=== PATIENT | male | born 1950 | race Caucasian/White ===

== ENCOUNTER 2019-03-24 11:29 | Inpatient (IN) | payer OTHER, MEDICARE ==
[2019-03-24 11:42] VITALS: BMI 15.6
--- NOTE | 2019-03-24 12:27 | PDOC ---
History of Present Illness - General Chief Complaint: Syncope/Near Syncope Stated Complaint: Syncope/Near Syncope Time Seen by Provider: 03/24/19 12:27 tPA Exclusion checklist 3-4.5h - Time Elapsed Date last known well: 03/22/19 Time last known well: 10:00 Elaspsed time: 2 Day(s) and 13 Hour(s) and 41 Minutes - Thrombolytic Therapy Candidate Is patient eligible for thrombolytic therapy: No - Ineligibility reason(s) Reasons No tPA given: Outside of window - delayed arrival NIH Stroke Scale - Last Known Well Date/Time & Onset Date Last Known Well: 03/22/19 Time Last Known Well: 10:00 - Initial Evaluation Level of consciousness: Alert Ask patient the month and their age: Answers both correctly Ask patient to open & close eyes; make fist and let go: Obeys both correctly Best gaze (horizontal eye movement): Normal Visual field testing: No visual field loss Facial paresis (Show teeth/raise eyebrows/close eyes tight): Normal symmetrical movement Motor Function: Left Arm: Normal Motor Function: Right Arm: Normal (extends arm 90 (or 45) degrees for 10 seconds without drift Motor Function: Left Leg: Normal (extends leg 30 degrees for 5 seconds without drift) Motor Function: Right Leg: Normal (extends leg 30 degrees for 5 seconds without drift) Limb Ataxia: Present in one limb Sensory(Use pinprick test arms,legs,trunk,face/side to side): Normal Best language (Describe picture, name items, read sentences): No Aphasia Dysarthria (read several words): Normal articulation Extinction and Inattention: No abnormality - Total Score NIH Stroke Scale Score: 1 Past History - Past Medical History Allergies/Adverse Reactions: Allergies Allergy/AdvReac Type Severity Reaction Status Date / Time No Known Allergies Allergy Verified 03/24/19 11:42 CVA: Yes (subarachnoid bleed on 2016, aphasia/apraxia) COPD: No Seizures: Yes - Psycho Social/Smoking Cessation Hx Smoking History: Current every day smoker Have you smoked in the past 12 months: No Number of Cigarettes Smoked Daily: 10 Information on smoking cessation initiated: No Hx Alcohol Use: No Drug/Substance Use Hx: No *Physical Exam - Vital Signs Last Vital Signs Temp Pulse Resp BP Pulse Ox 97 F L 80 16 166/53 L 96 03/24/19 11:35 03/24/19 11:35 03/24/19 11:35 03/24/19 11:35 03/24/19 11:35 ED Treatment Course - LABORATORY CBC & Chemistry Diagram: 03/24/19 13:15 03/24/19 13:15 Medical Decision Making - Medical Decision Making HPI: 68yo M with PMH of seizure disorder, 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 Patient is accompanied by his brother who is providing collateral history. Patient reports having a fall on Thursday after feeling dizzy and unstable. He fell on his left hip where he has had surgical hardware placed in 2014 and has mild pain there. Patient felt improvement in his dizziness but still felt unsteady yesterday. He felt acutely dizzy this morning around 10am and fell twice, hitting his head on the door and toilet. Denies loss of consciousness, nausea, or vomiting. No vision changes or focal weakness. Speech is at baseline per his brother, however, patient is unable to walk with his normal gait. Normally walks without a cane and walker. Last seizure was in July. Reports adherence with his seizure medications. No fevers, chills, chest pain, or shortness of breath. PCP: Dr. Garland, Neuro: Dr. Hernandez? ROS: Constitutional: no fever, no chills HEENT: no throat pain, no dysphagia Cardiovascular: no chest pain, no palpitations Respiratory: no cough, no shortness of breath Gastrointestinal: no abdominal pain, no nausea Genitourinary: no dysuria, no hematuria Musculoskeletal: no myalgia, no arthralgia Skin: no rash, no itching Neurologic: no headache, +dizziness PE: General: Awake, alert, and fully oriented, in no acute distress Head: No signs of trauma Eyes: EOMI, sclera anicteric ENT: Moist mucus membranes Neck: Normal ROM, supple Lungs: Lungs clear, Normal breath sounds Cardio: Regular rhythm, S1 and S2 present Abdomen: Soft, nontender. No guarding, no rebound, no masses Extremities: Normal range of motion, Distal pulses present SKIN: Warm, Dry, normal turgor Neurologic: Cranial nerves II through XII intact. Normal speech, sensation, strength, coordination. Unsteady gait ED Course/MDM: DDX including but not limited to CVA/TIA, infection, syncope/pre-syncope- cardiogenic, neurogenic, seizure, metabolic derangement Labs, EKG, CXR CT Head/Cpsine Hip/Pelvis Xray NIHSS is 1 for ataxia Outside tpa window as last known normal was Thursday Patient's brother, Joshua Ferris, can be reached at [phone] 03/24/19 12:27 EKG: rate 79, QTc 419, NSR (no prior EKGs in our EMR) 03/24/19 13:43 CBC WBC 8.2 K/mm3 (4.0-10.0) 03/24/19 13:15 RBC 3.72 M/mm3 (4.00-5.60) L 03/24/19 13:15 Hgb 13.1 GM/dL (11.7-16.9) 03/24/19 13:15 Hct 38.0 % (35.4-49) 03/24/19 13:15 MCV 102.0 fl (80-96) H 03/24/19 13:15 MCH 35.2 pg (25.7-33.7) H 03/24/19 13:15 MCHC 34.5 g/dl (32.0-35.9) 03/24/19 13:15 RDW 13.8 % (11.9-15.9) 03/24/19 13:15 Plt Count 151 K/MM3 (134-434) 03/24/19 13:15 MPV 8.0 fl (7.5-11.1) 03/24/19 13:15 Absolute Neuts (auto) 6.5 K/mm3 (1.5-8.0) 03/24/19 13:15 Neutrophils % 78.7 % (42.8-82.8) 03/24/19 13:15 Lymphocytes % 11.5 % (8-40) 03/24/19 13:15 Monocytes % 9.3 % (3.8-10.2) 03/24/19 13:15 Eosinophils % 0.2 % (0-4.5) 03/24/19 13:15 Basophils % 0.3 % (0-2.0) 03/24/19 13:15 Nucleated RBC % 0 % (0-0) 03/24/19 13:15 No leukocytosis CMP Sodium 134 mmol/L (136-145) L 03/24/19 13:15 Potassium 4.1 mmol/L (3.5-5.1) 03/24/19 13:15 Chloride 99 mmol/L (98-107) 03/24/19 13:15 Carbon Dioxide 31 mmol/L (21-32) 03/24/19 13:15 Anion Gap 5 MMOL/L (8-16) L 03/24/19 13:15 BUN 8.6 mg/dL (7-18) 03/24/19 13:15 Creatinine 0.7 mg/dL (0.55-1.3) 03/24/19 13:15 Est GFR (CKD-EPI)AfAm 112.38 03/24/19 13:15 Est GFR (CKD-EPI)NonAf 96.97 03/24/19 13:15 Random Glucose 84 mg/dL (74-106) 03/24/19 13:15 Calcium 8.6 mg/dL (8.5-10.1) 03/24/19 13:15 Total Bilirubin 0.4 mg/dL (0.2-1) 03/24/19 13:15 AST 26 U/L (15-37) 03/24/19 13:15 ALT 34 U/L (13-61) 03/24/19 13:15 Alkaline Phosphatase 99 U/L (45-117) 03/24/19 13:15 Creatine Kinase 384 U/L (26-308) H 03/24/19 13:15 Creatine Kinase Index 0.3 % (0.0-5.0) 03/24/19 13:15 CK-MB (CK-2) 1.5 ng/mL (0.5-3.6) 03/24/19 13:15 Troponin I < 0.02 ng/ml (0.00-0.05) 03/24/19 13:15 Total Protein 7.0 g/dl (6.4-8.2) 03/24/19 13:15 Albumin 4.0 g/dl (3.4-5.0) 03/24/19 13:15 Triglycerides 73 mg/dL (0-150) 03/24/19 13:15 Cholesterol 159 mg/dL (50-200) 03/24/19 13:15 Total LDL Cholesterol 56 mg/dL (5-100) 03/24/19 13:15 HDL Cholesterol 84 mg/dL (40-60) H 03/24/19 13:15 Electrolytes unremarkable No transaminitis Normal Cr Tpn undetectable CK mildly elevated Pending CT report 03/24/19 14:51 CT head: "No CT evidence of acute intracranial injury or calvarial fracture. Bilateral inferior frontal encephalomalacia, right more prominent than left, is seen along the orbital surfaces probably on a posttraumatic basis. There is no discrete infarct within the limitations of CT. No gross mass lesion is identified. No current intracranial hemorrhage is noted. There is no extra- axial fluid collection. There is no obstructive hydrocephalus. IMPRESSION: No CT evidence of acute intracranial pathology. Bilateral inferior frontal encephalomalacia. " CT Cspine: "Multiplanar imaging was performed. No prior imaging studies are available at this facility for direct comparison. No definite acute fracture is seen. There is no post traumatic malalignment. A moderate chronic C7 vertebral body compression fracture is seen without bony retropulsion. Within the visualized upper thoracic spine a mild to moderate T2 vertebral body compression fracture is seen which is probably chronic. MRI evaluation may be considered. The perivertebral soft tissues demonstrate no obvious abnormality. IMPRESSION: As noted above. " 03/24/19 16:12 Page to neurology, 03/24/19 16:[address] Rachel. Patient's dilantin level is supratherapeutic. To be held tonight. Consult placed. Plan for admission. 03/24/19 16:48 Dsicussed case with [facility] who accepted patient for admission under Dr. Chapa 03/24/19 17:46 Discharge - Discharge Information Problems reviewed: Yes Clinical Impression/Diagnosis: Dizziness, Unsteady gait Condition: Guarded - Admission Yes - Follow up/Referral - Patient Discharge Instructions - Post Discharge Activity
[2019-03-24] MEDS ORDERED: SODIUM CHLORIDE 1,000 ML IV SCH (13:00)
[2019-03-24 13:35] LABS: BASO % 0.3 % (0-2.0); EOS % 0.2 % (0-4.5); HEMOGLOBIN 13.1 GM/dL (11.7-16.9); LYMPH % 11.5 % (8-40); MCH 35.2 pg (25.7-33.7); MCHC 34.5 g/dl (32.0-35.9); MONO % 9.3 % (3.8-10.2); NEUT % 78.7 % (42.8-82.8); PLATELET COUNT 151 K/MM3 (134-434); RBC 3.72 M/mm3 (4.00-5.60); RDW 13.8 % (11.9-15.9); WHITE BLOOD COUNT 8.2 K/mm3 (4.0-10.0)
[2019-03-24 13:46] LABS: INR 1.08 (0.83-1.09); PROTHROMBIN TIME (PATIENT) 12.7 SEC (9.7-13.0)
[2019-03-24 13:48] LABS: ACTIVATED PTT 31.7 SECONDS (25.2-36.5)
[2019-03-24 13:54] LABS: BILIRUBIN,TOTAL 0.4 mg/dL (0.2-1); BLOOD UREA NITROGEN 8.6 mg/dL (7-18); CALCIUM 8.6 mg/dL (8.5-10.1); CREATININE 0.7 mg/dL (0.55-1.3); POTASSIUM 4.1 mmol/L (3.5-5.1)
--- NOTE | 2019-03-24 14:17 | PDOC ---
Documentation entered by Yoanna Mcdaniel SCRIBE, acting as scribe for Ramu Meadows MD. Ramu Meadows MD: This documentation has been prepared by the Jonas michaels Adrianna, SCRIBE, under my direction and personally reviewed by me in its entirety. I confirm that the documentation accurately reflects all work, treatment, procedures, and medical decision making performed by me. Attending Attestation - Resident Resident Name: Estefani Hernandez - ED Attending Attestation I have performed the following: I have examined & evaluated the patient, The case was reviewed & discussed with the resident, I agree w/resident's findings & plan, Exceptions are as noted - HPI HPI: The patient is a 68 year old male, with a significant PMH of seizure disorder ( compliant with medications) and traumatic subarachnoid hemorrhage (2014, with residual mild apraxia and aphasia), who presents to the ED for evaluation of dizziness and unsteady gait for 2 days. Patient reports falling onto his left hip 2 days ago secondary to dizziness and feeling unsteady, and endorses some residual pain. He admits to falling again this morning because of the continual room-spinning dizziness and unsteadiness, and reports hitting his head but denies LOC. Brother at bedside notes his speech is at baseline, but he cannot walk (ambulates without assistive devices at baseline). Last known seizure was 8 months ago. Allergies: NKA, NKDA Surgical HIstory: None reported Social History: Current everyday smoker PCP: Dr. Garland - Physicial Exam PE: Agree with resident exam - Medical Decision Making 03/24/19 14:13 68yo M hx seizure d/o on keppra and dilantin, traumatic SAH c/b residual apraxia , aphasia presents to the ED with gait unsteadiness for 2 days No headache Vitals with elevated BP Exam with ataxia Plan for stroke w/u. No seizure activity noted by brother Anticipate admission Case discussed with blas Amaral level elevated, may be contributing to ataxia Recommends overnight observation, will evaluate and to hold off on MRI for now Pt accepted for admission Case discussed in detail with admitting physician including history, physical exam and ancillary studies. Admitting physician has assumed care for the patient, will follow all pending diagnostics and will complete the evaluation and treatment.
[2019-03-24 17:06] LABS: EPI CELLS 0.1 /HPF (0-5/HPF); HYALINE CASTS 0 /lpf (0-8); URINE APPEARANCE CLEAR; URINE BACTERIA 0.8 /hpf (NEGATIVE); URINE BILIRUBIN NEGATIVE (NEGATIVE); URINE COLOR YELLOW; URINE GLUCOSE (UA) NEGATIVE (NEGATIVE); URINE KETONE NEGATIVE (NEGATIVE); URINE LEUK ESTERASE 1+ (NEGATIVE); URINE NITRITE NEGATIVE (NEGATIVE); URINE PROTEIN NEGATIVE (NEGATIVE); URINE RBC 4 /hpf (0-4); URINE UROBILINOGEN 0.2 mg/dL (0.2-1.0); URINE WBC 5 /hpf (0-5)
--- NOTE | 2019-03-24 17:42 | HP ---
CHIEF COMPLAINT: dizziness, falls, unstable gait PCP: Dr. 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 Patient reports that he fell on Thursday at home after feeling dizzy. He fell on his left hip were he had previously had hip surgery with surgical hardware in 2014. He again felt dizzy this morning while ambulting and fell twice, hitting his head on the door and toilet. He denies LOC, nausea or vomiting. He denies visual deficit or slurred speech. Patient is unable to ambulate at his normal gait which is usually without any assistive devices. He denies any recent seizure, last seizure was in July 2018. He reports adherence with the Keppra and Dilantin and reports alternating dilantin daily. ER course was notable for: (1) phentoin 36.9 (2) head ct negative (3) trop negative x 1 Imaging: Head CT: negative, no CT evidence of acute pathology. bilateral inf frontal encephalomlacia Left hip xray: no acute fracture EKG: nsr, possible left atrial enlargement, pulmonary disease likely Brain MRI: ordered and pending chest xray 03/24/19: emphysemtous changes in lungs. Recent Travel: denies PAST MEDICAL/SURGICAL HISTORY:seizure disorder, traumatic SAH in 2014 Social History: Smoking: denies Alcohol: denies Drugs: denies Allergies No Known Allergies Allergy (Verified 03/24/19 11:42) HOME MEDICATIONS: REVIEW OF SYSTEMS PHYSICAL EXAMINATION Vital Signs - 24 hr 03/24/19 03/24/19 11:35 17:17 Temperature 97 F L 98.2 F Pulse Rate 80 Pulse Rate [ 67 Right Apical] Respiratory 16 Rate Blood Pressure 166/53 L Blood Pressure 140/63 [Left Arm] O2 Sat by Pulse 96 96 Oximetry (%) GENERAL: Awake, alert, and fully oriented, in no acute distress, appears thin and frail. HEAD: Normal with no signs of trauma. EYES: Pupils equal, round and reactive to light, extraocular movements intact, sclera anicteric, conjunctiva clear. No lid lag. EARS, NOSE, THROAT: Ears normal, nares patent, oropharynx clear without exudates. Moist mucous membranes. NECK: Normal range of motion, supple without lymphadenopathy, JVD, or masses. LUNGS: Breath sounds equal, clear to auscultation bilaterally. No wheezes, and no crackles. No accessory muscle use. HEART: Regular rate and rhythm, ABDOMEN: Soft, nontender, not distended, normoactive bowel sounds, no guarding, no rebound, no masses. No hepatomegaly or splenomegaly. MUSCULOSKELETAL: Normal range of motion at all joints. No bony deformities or tenderness. No CVA tenderness. UPPER EXTREMITIES: No peripheral edema. LOWER EXTREMITIES: No peripheral edema. NEUROLOGICAL: Normal speech. gait not observed. PSYCHIATRIC: Cooperative. Good eye contact. Appropriate mood and affect. SKIN: dry skin Laboratory Results - last 24 hr 03/24/19 03/24/19 03/24/19 13:15 13:15 13:15 WBC 8.2 RBC 3.72 L Hgb 13.1 Hct 38.0 MCV 102.0 H MCH 35.2 H MCHC 34.5 RDW 13.8 Plt Count 151 MPV 8.0 Absolute Neuts (auto) 6.5 Neutrophils % 78.7 Lymphocytes % 11.5 Monocytes % 9.3 Eosinophils % 0.2 Basophils % 0.3 Nucleated RBC % 0 PT with INR INR PTT (Actin FS) Sodium 134 L Potassium 4.1 Chloride 99 Carbon Dioxide 31 Anion Gap 5 L BUN 8.6 Creatinine 0.7 Est GFR (CKD-EPI)AfAm 112.38 Est GFR (CKD-EPI)NonAf 96.97 Random Glucose 84 Calcium 8.6 Total Bilirubin 0.4 AST 26 ALT 34 Alkaline Phosphatase 99 Creatine Kinase 384 H Creatine Kinase Index 0.3 CK-MB (CK-2) 1.5 Troponin I < 0.02 Total Protein 7.0 Albumin 4.0 Triglycerides 73 Cholesterol 159 Total LDL Cholesterol 56 HDL Cholesterol 84 H Urine Color Urine Appearance Urine pH Ur Specific [place] Urine Protein Urine Glucose (UA) Urine Ketones Urine Blood Urine Nitrite Urine Bilirubin Urine Urobilinogen Ur Leukocyte Esterase Urine WBC (Auto) Urine RBC (Auto) Urine Casts (Auto) U Epithel Cells (Auto) Urine Bacteria (Auto) Phenytoin Blood Type Antibody Screen 03/24/19 03/24/19 03/24/19 13:15 13:15 15:00 WBC RBC Hgb Hct MCV MCH MCHC RDW Plt Count MPV Absolute Neuts (auto) Neutrophils % Lymphocytes % Monocytes % Eosinophils % Basophils % Nucleated RBC % PT with INR 12.70 INR 1.08 PTT (Actin FS) 31.7 Sodium Potassium Chloride Carbon Dioxide Anion Gap BUN Creatinine Est GFR (CKD-EPI)AfAm Est GFR (CKD-EPI)NonAf Random Glucose Calcium Total Bilirubin AST ALT Alkaline Phosphatase Creatine Kinase Creatine Kinase Index CK-MB (CK-2) Troponin I Total Protein Albumin Triglycerides Cholesterol Total LDL Cholesterol HDL Cholesterol Urine Color Urine Appearance Urine pH Ur Specific [place] Urine Protein Urine Glucose (UA) Urine Ketones Urine Blood Urine Nitrite Urine Bilirubin Urine Urobilinogen Ur Leukocyte Esterase Urine WBC (Auto) Urine RBC (Auto) Urine Casts (Auto) U Epithel Cells (Auto) Urine Bacteria (Auto) Phenytoin 36.9 Blood Type B POSITIVE Antibody Screen Negative 03/24/19 16:24 WBC RBC Hgb Hct MCV MCH MCHC RDW Plt Count MPV Absolute Neuts (auto) Neutrophils % Lymphocytes % Monocytes % Eosinophils % Basophils % Nucleated RBC % PT with INR INR PTT (Actin FS) Sodium Potassium Chloride Carbon Dioxide Anion Gap BUN Creatinine Est GFR (CKD-EPI)AfAm Est GFR (CKD-EPI)NonAf Random Glucose Calcium Total Bilirubin AST ALT Alkaline Phosphatase Creatine Kinase Creatine Kinase Index CK-MB (CK-2) Troponin I Total Protein Albumin Triglycerides Cholesterol Total LDL Cholesterol HDL Cholesterol Urine Color Yellow Urine Appearance Clear Urine pH 8.0 Ur Specific [place] 1.007 L Urine Protein Negative Urine Glucose (UA) Negative Urine Ketones Negative Urine Blood Trace Urine Nitrite Negative Urine Bilirubin Negative Urine Urobilinogen 0.2 Ur Leukocyte Esterase 1+ H Urine WBC (Auto) 5 Urine RBC (Auto) 4 Urine Casts (Auto) 0 U Epithel Cells (Auto) 0.1 Urine Bacteria (Auto) 0.8 Phenytoin Blood Type Antibody Screen ASSESSMENT/PLAN: Problem List - Problem (1) Syncope and collapse Assessment/Plan: Patient with dizzines, syncope and falls monitor on tele head ct negative for acute process, therefore patient for brain mri which is pending. physical therapy for gait assessment draw lipid panel, a1c. fall precautions Code(s): R55 - SYNCOPE AND COLLAPSE (2) Seizure Assessment/Plan: on keppra 1000mg bid on dilantin and alternates doses every other day. dilantin being held for dilantin level of 39. monitor neuro status neurology following Code(s): R56.9 - UNSPECIFIED CONVULSIONS (3) Falls Assessment/Plan: for physical therapy evaluation. Code(s): W19.XXXA - UNSPECIFIED FALL, INITIAL ENCOUNTER (4) Dizziness Assessment/Plan: noted to have emphysema on chest xray. may be causing dizziness/falls at home. on no home inhalers no history of emphysema reported pulmonary consulted for further recommendations patient is tolerating room air also noted is elevated dilantin levels. currently holding dilantin per neuro. Code(s): R42 - DIZZINESS AND GIDDINESS (5) Unsteady gait Assessment/Plan: for PT evaluation Code(s): R26.81 - UNSTEADINESS ON FEET (6) Syncope Assessment/Plan: monitor on tele. for brain mri. head ct negative. Code(s): R55 - SYNCOPE AND COLLAPSE (7) Prophylactic measure Assessment/Plan: fen gently hydrate, appears clinically dry monitor electrolytes low salt diet full code Code(s): Z29.9 - ENCOUNTER FOR PROPHYLACTIC MEASURES, UNSPECIFIED Visit type - Emergency Visit Emergency Visit: Yes ED Registration Date: 03/24/19 Care time: The patient presented to the Emergency Department on the above date and was hospitalized for further evaluation of their emergent condition. - New Patient This patient is new to me today: Yes Date on this admission: 03/25/19 - Critical Care Critical Care patient: No
--- NOTE | 2019-03-24 18:09 | CON.NEURO ---
Consult - History of Present Illness History of Present Illness: 68 year old male, with a significant PMH of seizure disorder (compliant with medications) and traumatic subarachnoid hemorrhage (2014, with residual mild apraxia and aphasia), who presents to the ED for evaluation of dizziness and unsteady gait for 2 days. Patient reports falling onto his left hip 2 days ago secondary to dizziness and feeling unsteady, and endorses some residual pain. He admits to falling again this morning because of the continual room-spinning dizziness and unsteadiness, and reports hitting his head but denies LOC. Brother at bedside notes his speech is at baseline, but he cannot walk ( ambulates without assertive devices at baseline). receives his AED form his PMD , last SZ Jul 2018; dilantin > 36. - Alcohol/Substance Use Hx Alcohol Use: No - Smoking History Smoking history: Current every day smoker Have you smoked in the past 12 months: No Aproximately how many cigarettes per day: 10 Home Medications - Allergies Allergies/Adverse Reactions: Allergies Allergy/AdvReac Type Severity Reaction Status Date / Time No Known Allergies Allergy Verified 03/24/19 11:42 Physical Exam-Neuro Vital Signs: Vital Signs Temperature 98.2 F 03/24/19 17:17 Pulse Rate 67 03/24/19 17:17 Respiratory Rate 16 03/24/19 11:35 Blood Pressure 140/63 03/24/19 17:17 O2 Sat by Pulse Oximetry (%) 96 03/24/19 17:17 Labs: CBC, BMP 03/24/19 13:15 03/24/19 13:15 INR, PTT INR 1.08 (0.83-1.09) 03/24/19 13:15 - Neuro Exam Level Of Consciousness: Yes: Alert (awake, EOMI, no facial, no ataxia, very wide based gait, unsteady ) Imaging - Results Cat Scan: Report Reviewed, Image Reviewed Assessment/Plan 68 year old male, with a significant PMH of seizure disorder (compliant with medications) and traumatic subarachnoid hemorrhage (2014, with residual mild apraxia and aphasia), who presents to the ED for evaluation of dizziness and unsteady gait for 2 days. Patient reports falling onto his left hip 2 days ago secondary to dizziness and feeling unsteady, and endorses some residual pain. He admits to falling again this morning because of the continual room-spinning dizziness and unsteadiness, and reports hitting his head but denies LOC. Brother at bedside notes his speech is at baseline, but he cannot walk ( ambulates without assertive devices at baseline). receives his AED form his PMD , last SZ Jul 2018; dilantin > 36. + smoking, no ETOH. CT HD IMPRESSION: No CT evidence of acute intracranial pathology. 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 dilantin toxicity vs new ischemic event vs hydrocephalus hold dilantin dose cont KEppra 1000BID check MRI BRAIN in AM PT consult DR GRANADOS
[2019-03-24] MEDS ORDERED: ACETAMINOPHEN 325 MG TABLET (FP) PO PRN (19:04)
[2019-03-24] MEDS: SODIUM CHLORIDE 1,000 ML IV SCH (19:52)
[2019-03-24] MEDS ORDERED: levETIRAcetam 500 MG TABLET (FP) PO ONE (22:07)
[2019-03-24] MEDS: levETIRAcetam 500 MG TABLET (FP) PO SCH (22:16)
[2019-03-25] MEDS: levETIRAcetam 500 MG TABLET (FP) PO SCH ×2 (10:55→21:17)
[2019-03-25] MEDS: PANTOPRAZOLE 40 MG TABLET (FP) PO SCH (10:55)
[2019-03-25] MEDS: DOCUSATE SODIUM 100 MG CAPSULE (FP) PO SCH (10:55)
--- NOTE | 2019-03-25 11:00 | PN ---
Progress Note (short form) - Note Progress Note: 68 year old male, with a significant PMH of seizure disorder (compliant with medications) and traumatic subarachnoid hemorrhage (2014, with residual mild apraxia and aphasia), who presents to the ED for evaluation of dizziness and unsteady gait for 2 days. Patient reports falling onto his left hip 2 days ago secondary to dizziness and feeling unsteady, and endorses some residual pain. He admits to falling again this morning because of the continual room-spinning dizziness and unsteadiness, and reports hitting his head but denies LOC. Brother at bedside notes his speech is at baseline, but he cannot walk ( ambulates without assertive devices at baseline). receives his AED form his PMD , last SZ Jul 2018; dilantin > 36. FU : no new changes MRI BRAIN -P dilantin on hold - Alcohol/Substance Use Hx Alcohol Use: No - Smoking History Smoking history: Current every day smoker Have you smoked in the past 12 months: No Aproximately how many cigarettes per day: 10 Home Medications - Allergies Allergies/Adverse Reactions: Allergies Allergy/AdvReac Type Severity Reaction Status Date / Time No Known Allergies Allergy Verified 03/24/19 11:42 Physical Exam-Neuro Vital Signs: Vital Signs Temperature 99.0 F 03/25/19 08:20 Pulse Rate 75 03/25/19 08:20 Respiratory Rate 20 03/25/19 08:20 Blood Pressure 138/64 03/25/19 08:20 O2 Sat by Pulse Oximetry (%) 99 03/25/19 08:20 Labs: CBCD WBC 8.2 K/mm3 (4.0-10.0) 03/24/19 13:15 RBC 3.72 M/mm3 (4.00-5.60) L 03/24/19 13:15 Hgb 13.1 GM/dL (11.7-16.9) 03/24/19 13:15 Hct 38.0 % (35.4-49) 03/24/19 13:15 MCV 102.0 fl (80-96) H 03/24/19 13:15 MCHC 34.5 g/dl (32.0-35.9) 03/24/19 13:15 RDW 13.8 % (11.9-15.9) 03/24/19 13:15 Plt Count 151 K/MM3 (134-434) 03/24/19 13:15 MPV 8.0 fl (7.5-11.1) 03/24/19 13:15 CMP Sodium 134 mmol/L (136-145) L 03/24/19 13:15 Potassium 4.1 mmol/L (3.5-5.1) 03/24/19 13:15 Chloride 99 mmol/L (98-107) 03/24/19 13:15 Carbon Dioxide 31 mmol/L (21-32) 03/24/19 13:15 Anion Gap 5 MMOL/L (8-16) L 03/24/19 13:15 BUN 8.6 mg/dL (7-18) 03/24/19 13:15 Creatinine 0.7 mg/dL (0.55-1.3) 03/24/19 13:15 Calcium 8.6 mg/dL (8.5-10.1) 03/24/19 13:15 Total Bilirubin 0.4 mg/dL (0.2-1) 03/24/19 13:15 AST 26 U/L (15-37) 03/24/19 13:15 ALT 34 U/L (13-61) 03/24/19 13:15 Alkaline Phosphatase 99 U/L (45-117) 03/24/19 13:15 Total Protein 7.0 g/dl (6.4-8.2) 03/24/19 13:15 Albumin 4.0 g/dl (3.4-5.0) 03/24/19 13:15 - Neuro Exam Level Of Consciousness: Yes: Alert (awake, EOMI, no facial, no ataxia, very wide based gait, unsteady ) Imaging - Results Cat Scan: Report Reviewed, Image Reviewed Assessment/Plan 68 year old male, with a significant PMH of seizure disorder (compliant with medications) and traumatic subarachnoid hemorrhage (2014, with residual mild apraxia and aphasia), who presents to the ED for evaluation of dizziness and unsteady gait for 2 days. Patient reports falling onto his left hip 2 days ago secondary to dizziness and feeling unsteady, and endorses some residual pain. He admits to falling again this morning because of the continual room-spinning dizziness and unsteadiness, and reports hitting his head but denies LOC. Brother at bedside notes his speech is at baseline, but he cannot walk ( ambulates without assertive devices at baseline). receives his AED form his PMD , last SZ Jul 2018; dilantin > 36. + smoking, no ETOH. CT HD IMPRESSION: No CT evidence of acute intracranial pathology. 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 dilantin toxicity vs new ischemic event vs hydrocephalus hold dilantin dose ( will likely redose 100TID when level normalizes) cont KEppra 1000BID MRI BRAIN-P PT consult DR GRANADOS
[2019-03-25 12:07] LABS: BASO % 0.7 % (0-2.0); EOS % 0.8 % (0-4.5); HEMATOCRIT 36.1 % (35.4-49); HEMOGLOBIN 12.6 GM/dL (11.7-16.9); LYMPH % 20.1 % (8-40); MCH 36.1 pg (25.7-33.7); MCHC 34.8 g/dl (32.0-35.9); MEAN CELL VOLUME 103.8 fl (80-96); MEAN PLT VOLUME 7.9 fl (7.5-11.1); MONO % 10.7 % (3.8-10.2); NEUT % 67.7 % (42.8-82.8); PLATELET COUNT 153 K/MM3 (134-434); RBC 3.48 M/mm3 (4.00-5.60); RDW 13.8 % (11.9-15.9); WHITE BLOOD COUNT 5.7 K/mm3 (4.0-10.0)
[2019-03-25 12:38] LABS: ALBUMIN 3.6 g/dl (3.4-5.0); BILIRUBIN,TOTAL 0.7 mg/dL (0.2-1); CALCIUM 8.3 mg/dL (8.5-10.1); CREATININE 0.5 mg/dL (0.55-1.3); MAGNESIUM 1.7 mg/dL (1.8-2.4); TOT PROT 6.5 g/dl (6.4-8.2)
--- NOTE | 2019-03-25 12:55 | EKG ---
Test Reason : Blood Pressure : / mmHG Vent. Rate : 079 BPM Atrial Rate : 079 BPM P-R Int : 152 ms QRS Dur : 084 ms QT Int : 366 ms P-R-T Axes : 085 107 085 degrees QTc Int : 419 ms POOR DATA QUALITY, INTERPRETATION MAY BE ADVERSELY AFFECTED NORMAL SINUS RHYTHM POSSIBLE LEFT ATRIAL ENLARGEMENT RIGHTWARD AXIS PULMONARY DISEASE PATTERN ABNORMAL ECG NO PREVIOUS ECGS AVAILABLE Confirmed by GILDA SEALS, SHY ([id number] on 03/25/2019 12:55:22 PM Referred By: Confirmed By:SHY VO MD
--- NOTE | 2019-03-25 14:09 | PN ---
Physical Exam: SUBJECTIVE: Patient seen and examined OBJECTIVE: Patient is a 68 year old male with a significant past medical history of seizure disorder, traumatic SAH in 2015 with mild residual apraxia and aphasia who presents to the ED with with dizziness, unstable gait, and fall. Vital Signs Period Temp Pulse Resp BP Sys/Allen Pulse Ox Last 24 Hr 98.0 F-99.0 F 67-75 16-20 132-152/56-77 95-99 GENERAL: Awake, alert, and fully oriented, in no acute distress, appears thin and frail. HEAD: Normal with no signs of trauma. EYES: Pupils equal, round and reactive to light, extraocular movements intact, sclera anicteric, conjunctiva clear. No lid lag. EARS, NOSE, THROAT: Ears normal, nares patent, oropharynx clear without exudates. Moist mucous membranes. NECK: Normal range of motion, supple without lymphadenopathy, JVD, or masses. LUNGS: Breath sounds equal, clear to auscultation bilaterally. No wheezes, and no crackles. No accessory muscle use. HEART: Regular rate and rhythm, ABDOMEN: Soft, nontender, not distended, normoactive bowel sounds, no guarding, no rebound, no masses. No hepatomegaly or splenomegaly. MUSCULOSKELETAL: Normal range of motion at all joints. No bony deformities or tenderness. No CVA tenderness. UPPER EXTREMITIES: No peripheral edema. LOWER EXTREMITIES: No peripheral edema. NEUROLOGICAL: Normal speech. gait not observed. PSYCHIATRIC: Cooperative. Good eye contact. Appropriate mood and affect. SKIN: dry skin Laboratory Results - last 24 hr 03/24/19 03/24/19 03/24/19 13:15 13:15 15:00 WBC RBC Hgb Hct MCV MCH MCHC RDW Plt Count MPV Absolute Neuts (auto) Neutrophils % Lymphocytes % Monocytes % Eosinophils % Basophils % Nucleated RBC % Sodium Potassium Chloride Carbon Dioxide Anion Gap BUN Creatinine Est GFR (CKD-EPI)AfAm Est GFR (CKD-EPI)NonAf Random Glucose Hemoglobin A1c % Calcium Magnesium Total Bilirubin AST ALT Alkaline Phosphatase Creatine Kinase Index 0.3 CK-MB (CK-2) 1.5 Troponin I Total Protein Albumin Triglycerides Cholesterol Total LDL Cholesterol HDL Cholesterol TSH Urine Color Urine Appearance Urine pH Ur Specific [place] Urine Protein Urine Glucose (UA) Urine Ketones Urine Blood Urine Nitrite Urine Bilirubin Urine Urobilinogen Ur Leukocyte Esterase Urine WBC (Auto) Urine RBC (Auto) Urine Casts (Auto) U Epithel Cells (Auto) Urine Bacteria (Auto) Phenytoin 36.9 Blood Type B POSITIVE Antibody Screen Negative 03/24/19 03/24/19 03/25/19 16:24 20:00 01:30 WBC RBC Hgb Hct MCV MCH MCHC RDW Plt Count MPV Absolute Neuts (auto) Neutrophils % Lymphocytes % Monocytes % Eosinophils % Basophils % Nucleated RBC % Sodium Potassium Chloride Carbon Dioxide Anion Gap BUN Creatinine Est GFR (CKD-EPI)AfAm Est GFR (CKD-EPI)NonAf Random Glucose Hemoglobin A1c % Calcium Magnesium Total Bilirubin AST ALT Alkaline Phosphatase Creatine Kinase Index CK-MB (CK-2) Troponin I < 0.02 Total Protein Albumin Triglycerides Cholesterol Total LDL Cholesterol HDL Cholesterol TSH Urine Color Yellow Urine Appearance Clear Urine pH 8.0 Ur Specific [place] 1.007 L Urine Protein Negative Urine Glucose (UA) Negative Urine Ketones Negative Urine Blood Trace Urine Nitrite Negative Urine Bilirubin Negative Urine Urobilinogen 0.2 Ur Leukocyte Esterase 1+ H Urine WBC (Auto) 5 Urine RBC (Auto) 4 Urine Casts (Auto) 0 U Epithel Cells (Auto) 0.1 Urine Bacteria (Auto) 0.8 Phenytoin Blood Type B POSITIVE Antibody Screen 03/25/19 03/25/19 03/25/19 11:42 11:42 11:42 WBC 5.7 RBC 3.48 L Hgb 12.6 Hct 36.1 MCV 103.8 H MCH 36.1 H MCHC 34.8 RDW 13.8 Plt Count 153 MPV 7.9 Absolute Neuts (auto) 3.8 Neutrophils % 67.7 Lymphocytes % 20.1 D Monocytes % 10.7 H Eosinophils % 0.8 D Basophils % 0.7 Nucleated RBC % 0 Sodium 133 L Potassium 4.0 Chloride 100 Carbon Dioxide 27 Anion Gap 6 L BUN 8.0 Creatinine 0.5 L Est GFR (CKD-EPI)AfAm 129.05 Est GFR (CKD-EPI)NonAf 111.35 Random Glucose 97 Hemoglobin A1c % 4.8 Calcium 8.3 L Magnesium 1.7 L Total Bilirubin 0.7 AST 25 ALT 31 Alkaline Phosphatase 97 Creatine Kinase Index CK-MB (CK-2) Troponin I Total Protein 6.5 Albumin 3.6 Triglycerides 62 Cholesterol 152 Total LDL Cholesterol 57 HDL Cholesterol 78 H TSH 1.68 Urine Color Urine Appearance Urine pH Ur Specific [place] Urine Protein Urine Glucose (UA) Urine Ketones Urine Blood Urine Nitrite Urine Bilirubin Urine Urobilinogen Ur Leukocyte Esterase Urine WBC (Auto) Urine RBC (Auto) Urine Casts (Auto) U Epithel Cells (Auto) Urine Bacteria (Auto) Phenytoin Blood Type Antibody Screen Active Medications Generic Name Dose Route Start Last Admin Trade Name Freq PRN Reason Stop Dose Admin Acetaminophen 650 mg 03/24/19 19:04 Tylenol - PO Q6H PRN PAIN LEVEL 6-10 Docusate Sodium 100 mg 03/25/19 10:00 03/25/19 10:55 Colace - PO 100 mg DAILY TREVOR Administration Sodium Chloride 1,000 mls @ 83 mls/hr 03/24/19 19:15 03/24/19 19:52 Normal Saline - IV 83 mls/hr ASDIR TREVOR Administration Levetiracetam 1,000 mg 03/24/19 22:00 03/25/19 10:55 Keppra - PO 1,000 mg BID TREVOR Administration Pantoprazole Sodium 40 mg 03/25/19 10:00 03/25/19 10:55 Protonix - PO 40 mg DAILY TREVOR Administration ASSESSMENT/PLAN: Problem List - Problems (1) Syncope and collapse Assessment/Plan: Patient with dizzines, syncope and falls on admission. monitor on tele head ct negative for acute process, therefore patient for brain mri which is pending. physical therapy for gait assessment fall precautions Code(s): R55 - SYNCOPE AND COLLAPSE (2) Syncope Assessment/Plan: dizziness with falls at home. physical therapy following. Code(s): R55 - SYNCOPE AND COLLAPSE (3) Seizure Assessment/Plan: on keppra 1000mg bid on dilantin and alternates doses every other day. dilantin being held for dilantin level of 39. monitor neuro status neurology following Code(s): R56.9 - UNSPECIFIED CONVULSIONS (4) Falls Assessment/Plan: for physical therapy evaluation. Code(s): W19.XXXA - UNSPECIFIED FALL, INITIAL ENCOUNTER (5) Dizziness Assessment/Plan: noted to have emphysema on chest xray. may be causing dizziness/falls at home. on no home inhalers no history of emphysema reported pulmonary consulted for further recommendations patient is tolerating room air also noted is elevated dilantin levels. currently holding dilantin per neuro. Code(s): R42 - DIZZINESS AND GIDDINESS (6) Unsteady gait Assessment/Plan: for PT evaluation Code(s): R26.81 - UNSTEADINESS ON FEET (7) Tobacco abuse Assessment/Plan: smokes 1/2 pack per day, cigarettes since age of 17. not willing quit. wants to cut back. will offer nicotine patch and continue counseling on cessation. emphysema seen on chest imaging. pulm consult. Code(s): Z72.0 - TOBACCO USE (8) Prophylactic measure Assessment/Plan: fen gently hydrate, appears clinically dry monitor electrolytes low salt diet full code Code(s): Z29.9 - ENCOUNTER FOR PROPHYLACTIC MEASURES, UNSPECIFIED Visit type - Emergency Visit Emergency Visit: Yes ED Registration Date: 03/24/19 Care time: The patient presented to the Emergency Department on the above date and was hospitalized for further evaluation of their emergent condition. - New Patient This patient is new to me today: No - Critical Care Critical Care patient: No - Discharge Referral Referred to [facility] No
[2019-03-25] MEDS: SODIUM CHLORIDE 1,000 ML IV SCH (21:33)
[2019-03-26] MEDS: DOCUSATE SODIUM 100 MG CAPSULE (FP) PO SCH (09:40)
[2019-03-26] MEDS: levETIRAcetam 500 MG TABLET (FP) PO SCH ×2 (09:40→21:17)
[2019-03-26] MEDS: PANTOPRAZOLE 40 MG TABLET (FP) PO SCH (09:41)
--- NOTE | 2019-03-26 10:48 | PN ---
Progress Note (short form) - Note Progress Note: PULMONARY CONSULTATION DICTATED 03/26/19 IMP COPD STABLE NOT IN ACUTE EXACERBATION S/P FALL UNSTEADY GAIT DILANTIN TOXICITY H/O TRAUMATIC SUBARACHNOID SEIZURE DISORDER SMOKER PLAN MONITOR DILATIN LEVEL KEPPRA INHALED BRONCHODILATORS NEEDED LOW DOSE CHEST CT FOR LUNG CANCER SCREENING SMOKING CESSATION COUNSELED OUTPATIENT PFTS DR QUINN Problem List - Problems (1) Dilantin toxicity Code(s): T42.0X1A - POISONING BY HYDANTOIN DERIVATIVES, ACCIDENTAL, INIT (2) Dizziness Code(s): R42 - DIZZINESS AND GIDDINESS (3) Seizure Code(s): R56.9 - UNSPECIFIED CONVULSIONS (4) Tobacco abuse Code(s): Z72.0 - TOBACCO USE (5) Unsteady gait Code(s): R26.81 - UNSTEADINESS ON FEET
[2019-03-26 11:10] LABS: BASO % 0.4 % (0-2.0); EOS % 0.7 % (0-4.5); HEMATOCRIT 38.1 % (35.4-49); HEMOGLOBIN 13.2 GM/dL (11.7-16.9); LYMPH % 15.9 % (8-40); MCH 34.6 pg (25.7-33.7); MCHC 34.5 g/dl (32.0-35.9); MEAN CELL VOLUME 100.4 fl (80-96); MEAN PLT VOLUME 7.8 fl (7.5-11.1); MONO % 10.6 % (3.8-10.2); NEUT % 72.4 % (42.8-82.8); PLATELET COUNT 175 K/MM3 (134-434); RDW 13.6 % (11.9-15.9); WHITE BLOOD COUNT 6.1 K/mm3 (4.0-10.0)
--- NOTE | 2019-03-26 11:35 | CONS ---
PULMONARY CONSULTATION DATE OF CONSULTATION: 03/26/2019 REFERRING PHYSICIAN: Oumou Billings NP HISTORY: Patient is a 68-year-old male with past medical history of seizure disorder compliant with medications, history of traumatic subarachnoid 2014 with apraxia and aphasia, history of tobacco use a ten cigarettes a day for many years. Admitted to [facility] on March 24 with complaint of dizziness and unsteady gait for 2-days' duration. Patient apparently fell on his left hip 2 days prior to admission secondary to feeling dizzy and unsteady. He denies any loss of consciousness. Denies any chest pains or palpitations. On admission, patient was evaluated by neurology and felt to have a possible Dilantin toxicity. Patient underwent an MRI of the brain, which revealed no acute pathology. Patient denies any shortness of breath, denies any PND or orthopnea, denies any chronic cough or hemoptysis. He denies any history of unexplained weight loss or night sweats. PAST MEDICAL HISTORY: Again, includes seizure disorder, history of traumatic subarachnoid 2014. SOCIAL HISTORY: Positive for tobacco approximately a pack a day for many years. No occupational exposures. REVIEW OF SYSTEMS: No orthopnea, no PND, no cough, no chest pain, no lightheadedness, no GI complaints. CURRENT MEDICATIONS: Include Tylenol, Keppra, Colace, normal saline, Protonix. PHYSICAL EXAMINATION: General: Patient is a cachectic male awake and alert in no acute distress. Vital Signs: He is afebrile. Blood pressure 142/53, respiratory rate is 20, O2 saturation is 100% on room air. HEENT: Normocephalic, atraumatic. Neck: Supple. Heart: Regular S1, S2. Chest: Clear. Abdomen: Soft. Bowel sounds are positive. Extremities: No cyanosis or edema. LABORATORIES: Sodium is 133, BUN 8, creatinine 0.5. Dilantin level is 36.9. WBC 5.7, hemoglobin 12.6, hematocrit 36.1. Chest x-ray: Hyperinflated lung stock. Emphysematous changes bilaterally. Brain MRI reveals focal encephalomalacia right frontal lobe anterior inferiorly. Moderate atrophy, ventricular dilatation, mild periventricular microvascular ischemic changes. No acute infarct is present. IMPRESSION: 1. Likely chronic obstructive pulmonary disease not in acute exacerbation. 2. Status post fall. 3. Unsteady gait. 4. Likely Dilantin toxicity. 5. History of traumatic subarachnoid. 6. Seizure disorder. 7. Smoker. PLAN: Monitor Dilantin level. Sarah. Inhaled bronchodilators as needed. Recommend low-dose chest CT as a lung cancer screening. Smoking cessation counseled. AMARJIT QUINN M.D. [facility]ART/[id number] MTDD
[2019-03-26 11:50] LABS: ALBUMIN 3.6 g/dl (3.4-5.0); BILIRUBIN,TOTAL 0.6 mg/dL (0.2-1); BLOOD UREA NITROGEN 9.2 mg/dL (7-18); CALCIUM 8.2 mg/dL (8.5-10.1); CREATININE 0.6 mg/dL (0.55-1.3); MAGNESIUM 1.7 mg/dL (1.8-2.4); POTASSIUM 3.9 mmol/L (3.5-5.1); TOT PROT 6.4 g/dl (6.4-8.2)
--- NOTE | 2019-03-26 12:13 | PN ---
Progress Note (short form) - Note Progress Note: 68 year old male, with a significant PMH of seizure disorder (compliant with medications) and traumatic subarachnoid hemorrhage (2014, with residual mild apraxia and aphasia), who presents to the ED for evaluation of dizziness and unsteady gait for 2 days. Patient reports falling onto his left hip 2 days ago secondary to dizziness and feeling unsteady, and endorses some residual pain. He admits to falling again this morning because of the continual room-spinning dizziness and unsteadiness, and reports hitting his head but denies LOC. Brother at bedside notes his speech is at baseline, but he cannot walk ( ambulates without assertive devices at baseline). receives his AED form his PMD , last SZ Jul 2018; dilantin > 36. FU : he states he is doing better, though continues to be imbalanced; at baselien he does he walks unassisted MRI BRAIN reviewed dilantin on hold RADIOLOGY : MRI BRAIN : IMPRESSION: No acute infarct is identified. Moderate atrophy, ventricular dilatation and mild periventricular chronic microvascular ischemic disease changes are present. Focal encephalomalacia in the right frontal lobe, anteriorly/inferiorly again seen. - Alcohol/Substance Use Hx Alcohol Use: No - Smoking History Smoking history: Current every day smoker Have you smoked in the past 12 months: No Aproximately how many cigarettes per day: 10 Home Medications - Allergies Allergies/Adverse Reactions: Allergies Allergy/AdvReac Type Severity Reaction Status Date / Time No Known Allergies Allergy Verified 03/24/19 11:42 Physical Exam-Neuro Vital Signs: Vital Signs Temperature 98.1 F 03/26/19 10:00 Pulse Rate 83 03/26/19 10:00 Respiratory Rate 20 03/26/19 10:00 Blood Pressure 142/53 L 03/26/19 10:00 O2 Sat by Pulse Oximetry (%) 100 03/26/19 09:00 Labs: CBCD CBCD WBC 6.1 K/mm3 (4.0-10.0) 03/26/19 10:43 RBC 3.80 M/mm3 (4.00-5.60) L 03/26/19 10:43 Hgb 13.2 GM/dL (11.7-16.9) 03/26/19 10:43 Hct 38.1 % (35.4-49) 03/26/19 10:43 MCV 100.4 fl (80-96) H 03/26/19 10:43 MCHC 34.5 g/dl (32.0-35.9) 03/26/19 10:43 RDW 13.6 % (11.9-15.9) 03/26/19 10:43 Plt Count 175 K/MM3 (134-434) 03/26/19 10:43 MPV 7.8 fl (7.5-11.1) 03/26/19 10:43 CMP Sodium 134 mmol/L (136-145) L 03/26/19 10:43 Potassium 3.9 mmol/L (3.5-5.1) 03/26/19 10:43 Chloride 100 mmol/L (98-107) 03/26/19 10:43 Carbon Dioxide 28 mmol/L (21-32) 03/26/19 10:43 Anion Gap 5 MMOL/L (8-16) L 03/26/19 10:43 BUN 9.2 mg/dL (7-18) 03/26/19 10:43 Creatinine 0.6 mg/dL (0.55-1.3) 03/26/19 10:43 Calcium 8.2 mg/dL (8.5-10.1) L 03/26/19 10:43 Total Bilirubin 0.6 mg/dL (0.2-1) 03/26/19 10:43 AST 34 U/L (15-37) 03/26/19 10:43 ALT 32 U/L (13-61) 03/26/19 10:43 Alkaline Phosphatase 103 U/L (45-117) 03/26/19 10:43 Total Protein 6.4 g/dl (6.4-8.2) 03/26/19 10:43 Albumin 3.6 g/dl (3.4-5.0) 03/26/19 10:43 - Neuro Exam Level Of Consciousness: Yes: Alert (awake, EOMI, no facial, no ataxia, very wide based gait, unsteady ) Imaging - Results Cat Scan: Report Reviewed, Image Reviewed Assessment/Plan 68 year old male, with a significant PMH of seizure disorder (compliant with medications) and traumatic subarachnoid hemorrhage (2014, with residual mild apraxia and aphasia), who presents to the ED for evaluation of dizziness and unsteady gait for 2 days. Patient reports falling onto his left hip 2 days ago secondary to dizziness and feeling unsteady, and endorses some residual pain. He admits to falling again this morning because of the continual room-spinning dizziness and unsteadiness, and reports hitting his head but denies LOC. Brother at bedside notes his speech is at baseline, but he cannot walk ( ambulates without assertive devices at baseline). receives his AED form his PMD , last SZ Jul 2018; dilantin > 36. + smoking, no ETOH. CT HD IMPRESSION: No CT evidence of acute intracranial pathology. 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 dilantin toxicity vs new ischemic event vs hydrocephalus , inc tone in legs may be from prior stroke vs cervical mediated , though he reports this is a new phenomena MRI BRAIN -no acute changes , R frontal encephalomalcia hold dilantin dose ( will likely redose 100TID when level normalizes) -- RECHECK LEVEL today cont Jeanniera 1000BID PT consult DR GRANADOS
--- NOTE | 2019-03-26 17:52 | PN ---
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 Vital Signs Period Temp Pulse Resp BP Sys/Allen Pulse Ox Last 24 Hr 98 F-98.8 F 71-90 18-20 139-155/49-74 99-100 GENERAL: Awake, alert, and fully oriented, in no acute distress, appears thin and frail. HEAD: Normal with no signs of trauma. EYES: Pupils equal, round and reactive to light, extraocular movements intact, sclera anicteric, conjunctiva clear. No lid lag. EARS, NOSE, THROAT: Ears normal, nares patent, oropharynx clear without exudates. Moist mucous membranes. NECK: Normal range of motion, supple without lymphadenopathy, JVD, or masses. LUNGS: Breath sounds equal, diminished auscultation bilaterally. HEART: Regular rate and rhythm, ABDOMEN: Soft, nontender, not distended, normoactive bowel sounds, no guarding, no rebound, no masses. No hepatomegaly or splenomegaly. MUSCULOSKELETAL: Normal range of motion at all joints. No bony deformities or tenderness. No CVA tenderness. UPPER EXTREMITIES: No peripheral edema. LOWER EXTREMITIES: No peripheral edema. NEUROLOGICAL: Normal speech. gait not observed. PSYCHIATRIC: Cooperative. Good eye contact. Appropriate mood and affect. SKIN: dry skin Laboratory Results - last 24 hr 03/26/19 03/26/19 03/26/19 10:43 10:43 13:38 WBC 6.1 RBC 3.80 L Hgb 13.2 Hct 38.1 MCV 100.4 H MCH 34.6 H MCHC 34.5 RDW 13.6 Plt Count 175 MPV 7.8 Absolute Neuts (auto) 4.4 Neutrophils % 72.4 Lymphocytes % 15.9 D Monocytes % 10.6 H Eosinophils % 0.7 Basophils % 0.4 Nucleated RBC % 0 Sodium 134 L Potassium 3.9 Chloride 100 Carbon Dioxide 28 Anion Gap 5 L BUN 9.2 Creatinine 0.6 Est GFR (CKD-EPI)AfAm 119.74 Est GFR (CKD-EPI)NonAf 103.31 Random Glucose 112 H Calcium 8.2 L Magnesium 1.7 L Total Bilirubin 0.6 AST 34 ALT 32 Alkaline Phosphatase 103 Total Protein 6.4 Albumin 3.6 Phenytoin 22.5 Active Medications Generic Name Dose Route Start Last Admin Trade Name Freq PRN Reason Stop Dose Admin Acetaminophen 650 mg 03/24/19 19:04 Tylenol - PO Q6H PRN PAIN LEVEL 6-10 Docusate Sodium 100 mg 03/25/19 10:00 03/26/19 09:40 Colace - PO 100 mg DAILY [facility] Administration Sodium Chloride 1,000 mls @ 83 mls/hr 03/24/19 19:15 03/25/19 21:33 Normal Saline - IV 83 mls/hr ASDIR [facility] Administration Levetiracetam 1,000 mg 03/24/19 22:00 03/26/19 09:40 Keppra - PO 1,000 mg BID [facility] Administration Pantoprazole Sodium 40 mg 03/25/19 10:00 03/26/19 09:41 Protonix - PO 40 mg DAILY [facility] Administration ASSESSMENT/PLAN: Problem List - Problems (1) Syncope and collapse Assessment/Plan: Patient with dizzines, syncope and falls on admission. nsr on tele head ct negative for acute process, mri brain with no acute infarction, moderate atrophy, ventricular dilatation and mild periventricular chronic microvascular ischemic dx changes. focal encephalomalacia in the the frontal lobe. physical therapy for gait assessment fall precautions Code(s): R55 - SYNCOPE AND COLLAPSE (2) Syncope Assessment/Plan: dizziness with falls at home. physical therapy following, home PT recommended. Code(s): R55 - SYNCOPE AND COLLAPSE (3) Seizure Assessment/Plan: on keppra 1000mg bid on dilantin and alternates doses every other day. dilantin being held for dilantin level of 39. levels repeated today monitor neuro status neurology following Code(s): R56.9 - UNSPECIFIED CONVULSIONS (4) Falls Assessment/Plan: for physical therapy evaluation. Code(s): W19.XXXA - UNSPECIFIED FALL, INITIAL ENCOUNTER (5) Dizziness Assessment/Plan: noted to have emphysema on chest xray. may be causing dizziness/falls at home. on no home inhalers no history of emphysema or copd reported but smoking since age of 17 pulmonary consulted for further recommendations, ct scan ordered patient is tolerating room air Code(s): R42 - DIZZINESS AND GIDDINESS (6) Unsteady gait Assessment/Plan: for PT evaluation Code(s): R26.81 - UNSTEADINESS ON FEET (7) Tobacco abuse Assessment/Plan: smokes 1/2 pack per day, cigarettes since age of 17. not willing quit. wants to cut back. will offer nicotine patch and continue counseling on cessation. emphysema seen on chest imaging. pulm consult. Code(s): Z72.0 - TOBACCO USE (8) Prophylactic measure Assessment/Plan: fen gently hydrate, appears clinically dry monitor electrolytes low salt diet full code Code(s): Z29.9 - ENCOUNTER FOR PROPHYLACTIC MEASURES, UNSPECIFIED Visit type - Emergency Visit Emergency Visit: Yes ED Registration Date: 03/24/19 Care time: The patient presented to the Emergency Department on the above date and was hospitalized for further evaluation of their emergent condition. - New Patient This patient is new to me today: No - Critical Care Critical Care patient: No - Discharge Referral Referred to [facility] No
[2019-03-26] MEDS: NICOTINE 21 MG/24 HOURS TOPICAL PATCH TD SCH ×2 (17:59→18:01)
[2019-03-27 09:06] LABS: BASO % 0.4 % (0-2.0); EOS % 0.8 % (0-4.5); HEMATOCRIT 36.4 % (35.4-49); HEMOGLOBIN 12.6 GM/dL (11.7-16.9); LYMPH % 14.1 % (8-40); MCH 35.3 pg (25.7-33.7); MCHC 34.7 g/dl (32.0-35.9); MEAN CELL VOLUME 101.6 fl (80-96); MEAN PLT VOLUME 7.7 fl (7.5-11.1); MONO % 8.2 % (3.8-10.2); NEUT % 76.5 % (42.8-82.8); PLATELET COUNT 187 K/MM3 (134-434); RBC 3.58 M/mm3 (4.00-5.60); RDW 13.9 % (11.9-15.9); WHITE BLOOD COUNT 6.6 K/mm3 (4.0-10.0)
[2019-03-27 09:20] LABS: ALBUMIN 3.5 g/dl (3.4-5.0); BILIRUBIN,TOTAL 0.7 mg/dL (0.2-1); CALCIUM 8.4 mg/dL (8.5-10.1); CREATININE 0.5 mg/dL (0.55-1.3); MAGNESIUM 1.7 mg/dL (1.8-2.4); POTASSIUM 3.9 mmol/L (3.5-5.1); TOT PROT 6.4 g/dl (6.4-8.2)
[2019-03-27] MEDS: levETIRAcetam 500 MG TABLET (FP) PO SCH ×2 (09:52→21:31)
[2019-03-27] MEDS: DOCUSATE SODIUM 100 MG CAPSULE (FP) PO SCH (09:52)
[2019-03-27] MEDS: PANTOPRAZOLE 40 MG TABLET (FP) PO SCH (09:52)
[2019-03-27] MEDS: NICOTINE 21 MG/24 HOURS TOPICAL PATCH TD SCH ×2 (09:52→09:54)
[2019-03-27] MEDS: SODIUM CHLORIDE 1,000 ML IV SCH ×2 (09:53→19:42)
--- NOTE | 2019-03-27 10:05 | PN ---
Progress Note, Physician History of Present Illness: pulmonary awake,no distress,-cp,-sob - Current Medication List Current Medications: Active Medications Acetaminophen (Tylenol -) 650 mg PO Q6H PRN PRN Reason: PAIN LEVEL 6-10 Docusate Sodium (Colace -) 100 mg PO DAILY [facility] Last Admin: 03/27/19 09:52 Dose: 100 mg Sodium Chloride (Normal Saline -) 1,000 mls @ 83 mls/hr IV ASDIR [facility] Last Admin: 03/27/19 09:53 Dose: 83 mls/hr Levetiracetam (Keppra -) 1,000 mg PO BID [facility] Last Admin: 03/27/19 09:52 Dose: 1,000 mg Nicotine (Nicoderm Patch -) 21 mg TD DAILY [facility] Last Admin: 03/27/19 09:54 Dose: Not Given Pantoprazole Sodium (Protonix -) 40 mg PO DAILY [facility] Last Admin: 03/27/19 09:52 Dose: 40 mg - Objective Vital Signs: Vital Signs Temperature 99.3 F 03/27/19 05:15 Pulse Rate 71 03/27/19 05:15 Respiratory Rate 20 03/27/19 05:15 Blood Pressure 141/54 L 03/27/19 05:15 O2 Sat by Pulse Oximetry (%) 98 03/26/19 20:23 Constitutional: Yes: Calm, Thin Eyes: Yes: WNL HENT: Yes: WNL Cardiovascular: Yes: Regular Rate and Rhythm, S1, S2 Respiratory: Yes: CTA Bilaterally Gastrointestinal: Yes: Normal Bowel Sounds, Soft Extremities: Yes: WNL Edema: No Labs: CBC, BMP 03/27/19 08:26 03/27/19 08:26 INR, PTT INR 1.08 (0.83-1.09) 03/24/19 13:15 Problem List - Problems (1) Dilantin toxicity Code(s): T42.0X1A - POISONING BY HYDANTOIN DERIVATIVES, ACCIDENTAL, INIT (2) Dizziness Code(s): R42 - DIZZINESS AND GIDDINESS (3) Seizure Code(s): R56.9 - UNSPECIFIED CONVULSIONS (4) Tobacco abuse Code(s): Z72.0 - TOBACCO USE (5) Unsteady gait Code(s): R26.81 - UNSTEADINESS ON FEET Assessment/Plan IMP COPD STABLE NOT IN ACUTE EXACERBATION S/P FALL UNSTEADY GAIT DILANTIN TOXICITY IMPROVING H/O TRAUMATIC SUBARACHNOID SEIZURE DISORDER SMOKER PLAN MONITOR DILATIN LEVEL KEPPRA INHALED BRONCHODILATORS NEEDED LOW DOSE CHEST CT FOR LUNG CANCER SCREENING SMOKING CESSATION COUNSELED OUTPATIENT PFTS DR QUINN Problem List - Problems (1) Dilantin toxicity Code(s): T42.0X1A - POISONING BY HYDANTOIN DERIVATIVES, ACCIDENTAL, INIT (2) Dizziness Code(s): R42 - DIZZINESS AND GIDDINESS (3) Seizure Code(s): R56.9 - UNSPECIFIED CONVULSIONS (4) Tobacco abuse Code(s): Z72.0 - TOBACCO USE (5) Unsteady gait Code(s): R26.81 - UNSTEADINESS ON FEET
[2019-03-27] MEDS ORDERED: MAGNESIUM OXIDE 400 MG TABLET (FP) PO ONE (14:33)
--- NOTE | 2019-03-27 16:18 | PN ---
Physical Exam: SUBJECTIVE: Patient seen and examined at the bedside. still having dizziness with ambulation, reports he does not get dizzy if uses the walker. 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 Imaging: Head CT: negative, no CT evidence of acute pathology. bilateral inf frontal encephalomlacia Left hip xray: no acute fracture EKG: nsr, possible left atrial enlargement, pulmonary disease likely Brain MRI: mod atrophy, vent. dilatation and mild periventricular ischemic changes, focal encephalomalcia in the right frontal lobe/ant/inf. chest xray 03/24/19: emphysemtous changes in lungs. Vital Signs Period Temp Pulse Resp BP Sys/Allen Pulse Ox Last 24 Hr 98 F-99.3 F 71-91 18-20 125-159/54-70 96-98 GENERAL: Awake, alert, and fully oriented, in no acute distress, appears thin and frail. HEAD: Normal with no signs of trauma. EYES: Pupils equal, round and reactive to light, extraocular movements intact, sclera anicteric, conjunctiva clear. No lid lag. EARS, NOSE, THROAT: Ears normal, nares patent, oropharynx clear without exudates. Moist mucous membranes. NECK: Normal range of motion, supple without lymphadenopathy, JVD, or masses. LUNGS: Breath sounds equal, diminished auscultation bilaterally. HEART: Regular rate and rhythm, ABDOMEN: Soft, nontender, not distended, normoactive bowel sounds, no guarding, no rebound, no masses. No hepatomegaly or splenomegaly. MUSCULOSKELETAL: Normal range of motion at all joints. No bony deformities or tenderness. No CVA tenderness. UPPER EXTREMITIES: No peripheral edema. LOWER EXTREMITIES: No peripheral edema. NEUROLOGICAL: Normal speech. gait not observed. PSYCHIATRIC: Cooperative. Good eye contact. Appropriate mood and affect. SKIN: dry skin Laboratory Results - last 24 hr 03/24/19 03/27/19 03/27/19 15:00 08:26 08:26 WBC 6.6 RBC 3.58 L Hgb 12.6 Hct 36.4 MCV 101.6 H MCH 35.3 H MCHC 34.7 RDW 13.9 Plt Count 187 MPV 7.7 Absolute Neuts (auto) 5.0 Neutrophils % 76.5 Lymphocytes % 14.1 Monocytes % 8.2 Eosinophils % 0.8 Basophils % 0.4 Nucleated RBC % 0 Sodium 135 L Potassium 3.9 Chloride 102 Carbon Dioxide 26 Anion Gap 7 L BUN 10.0 Creatinine 0.5 L Est GFR (CKD-EPI)AfAm 129.05 Est GFR (CKD-EPI)NonAf 111.35 Random Glucose 91 Calcium 8.4 L Magnesium 1.7 L Total Bilirubin 0.7 AST 37 ALT 35 Alkaline Phosphatase 96 Total Protein 6.4 Albumin 3.5 Levetiracetam 16.9 Active Medications Generic Name Dose Route Start Last Admin Trade Name Freq PRN Reason Stop Dose Admin Acetaminophen 650 mg 03/24/19 19:04 Tylenol - PO Q6H PRN PAIN LEVEL 6-10 Docusate Sodium 100 mg 03/25/19 10:00 03/27/19 09:52 Colace - PO 100 mg DAILY T[facility] Administration Sodium Chloride 1,000 mls @ 83 mls/hr 03/24/19 19:15 03/27/19 09:53 Normal Saline - IV 83 mls/hr ASDIR [facility] Administration Levetiracetam 1,000 mg 03/24/19 22:00 03/27/19 09:52 Keppra - PO 1,000 mg BID T[facility] Administration Nicotine 21 mg 03/26/19 18:00 03/27/19 09:54 Nicoderm Patch - TD Not Given DAILY [facility] Pantoprazole Sodium 40 mg 03/25/19 10:00 03/27/19 09:52 Protonix - PO 40 mg DAILY TRE[facility] Administration ASSESSMENT/PLAN: Problem List - Problems (1) Syncope and collapse Assessment/Plan: Patient with dizziness, syncope and falls on admission. nsr on tele, no acute events head ct negative for acute process, mri brain with no acute infarction, moderate atrophy, ventricular dilatation and mild periventricular chronic microvascular ischemic dx changes. focal encephalomalacia in the the frontal lobe. physical therapy for gait assessment fall precautions Code(s): R55 - SYNCOPE AND COLLAPSE (2) Syncope Assessment/Plan: dizziness with falls at home. physical therapy following, home PT recommended. Code(s): R55 - SYNCOPE AND COLLAPSE (3) Seizure Assessment/Plan: on keppra 1000mg bid on dilantin and alternates doses every other day. dilantin being held for dilantin level of 39. levels now 22. restart dilantin per neuro. monitor neuro status neurology following Code(s): R56.9 - UNSPECIFIED CONVULSIONS (4) Falls Assessment/Plan: for physical therapy evaluation. Code(s): W19.XXXA - UNSPECIFIED FALL, INITIAL ENCOUNTER (5) Dizziness Assessment/Plan: noted to have emphysema on chest xray. may be causing dizziness/falls at home. on no home inhalers no history of emphysema or copd reported but smoking since age of 17 pulmonary consulted for further recommendations, ct scan ordered and pending patient is tolerating room air Code(s): R42 - DIZZINESS AND GIDDINESS (6) Unsteady gait Assessment/Plan: for PT evaluation Code(s): R26.81 - UNSTEADINESS ON FEET (7) Tobacco abuse Assessment/Plan: smokes 1/2 pack per day, cigarettes since age of 17. not willing quit. wants to cut back. will offer nicotine patch and continue counseling on cessation. emphysema seen on chest imaging. pulm consult. Code(s): Z72.0 - TOBACCO USE (8) Prophylactic measure Assessment/Plan: fen gently hydrate, appears clinically dry monitor electrolytes low salt diet full code Code(s): Z29.9 - ENCOUNTER FOR PROPHYLACTIC MEASURES, UNSPECIFIED Visit type - Emergency Visit Emergency Visit: Yes ED Registration Date: 03/24/19 Care time: The patient presented to the Emergency Department on the above date and was hospitalized for further evaluation of their emergent condition. - New Patient This patient is new to me today: No - Critical Care Critical Care patient: No - Discharge Referral Referred to [facility] No
[2019-03-28 08:55] LABS: BASO % 0.5 % (0-2.0); EOS % 1.6 % (0-4.5); HEMATOCRIT 33.5 % (35.4-49); HEMOGLOBIN 12.1 GM/dL (11.7-16.9); LYMPH % 22.2 % (8-40); MCH 36.2 pg (25.7-33.7); MCHC 36.2 g/dl (32.0-35.9); MEAN CELL VOLUME 100.3 fl (80-96); MEAN PLT VOLUME 7.6 fl (7.5-11.1); MONO % 9.5 % (3.8-10.2); NEUT % 66.2 % (42.8-82.8); PLATELET COUNT 206 K/MM3 (134-434); RBC 3.34 M/mm3 (4.00-5.60); RDW 13.7 % (11.9-15.9); WHITE BLOOD COUNT 4.8 K/mm3 (4.0-10.0)
[2019-03-28 09:38] LABS: ALBUMIN 3.4 g/dl (3.4-5.0); BILIRUBIN,TOTAL 0.5 mg/dL (0.2-1); BLOOD UREA NITROGEN 8.6 mg/dL (7-18); CALCIUM 8.4 mg/dL (8.5-10.1); CREATININE 0.4 mg/dL (0.55-1.3); MAGNESIUM 1.7 mg/dL (1.8-2.4); POTASSIUM 4.2 mmol/L (3.5-5.1); TOT PROT 6.3 g/dl (6.4-8.2)
[2019-03-28] MEDS ORDERED: MAGNESIUM OXIDE 400 MG TABLET (FP) PO ONE (09:40)
[2019-03-28] MEDS: PANTOPRAZOLE 40 MG TABLET (FP) PO SCH (10:58)
[2019-03-28] MEDS: levETIRAcetam 500 MG TABLET (FP) PO SCH (10:58)
[2019-03-28] MEDS: DOCUSATE SODIUM 100 MG CAPSULE (FP) PO SCH (11:00)
[2019-03-28] MEDS: NICOTINE 21 MG/24 HOURS TOPICAL PATCH TD SCH (11:00)
[2019-03-28] MEDS ORDERED: FOLIC ACID 1 MG TABLET (FP) PO SCH (12:45)
--- NOTE | 2019-03-28 14:21 | PN ---
Progress Note (short form) - Note Progress Note: PULMONARY Denies shortness of breath, cough or wheezing. CT chest without acute findings. Vital Signs Period Temp Pulse Resp BP Sys/Allen Pulse Ox Last 24 Hr 98.0 F-99 F 70-82 20-20 125-142/54-63 96-96 Gen: NAD at rest Heart: RRR Lung: distant breath sounds Abd: soft, nontender Ext: no edema CBC, BMP 03/28/19 08:02 03/28/19 08:02 Active Medications Acetaminophen (Tylenol -) 650 mg PO Q6H PRN PRN Reason: PAIN LEVEL 6-10 Docusate Sodium (Colace -) 100 mg PO DAILY [facility] Last Admin: 03/28/19 11:00 Dose: Not Given Levetiracetam (Keppra -) 1,000 mg PO BID [facility] Last Admin: 03/28/19 10:58 Dose: 1,000 mg Nicotine (Nicoderm Patch -) 21 mg TD DAILY [facility] Last Admin: 03/28/19 11:00 Dose: Not Given A/P s/p Fall Dilantin Toxicity COPD Seizure Disorder Smoker - inhaled bronchodilators as needed - smoking cessation - DVT prophylaxis - PFTs outpt
[2019-03-28] MEDS ORDERED: LORazepam 2 MG/ML SDV VIAL ONE (17:03)
--- NOTE | 2019-03-28 17:05 | PN ---
Physical Exam: SUBJECTIVE: Patient seen and examined at the bedside. 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 rapid response today after having a seizure, given loading dose of keppra 1k, convert keppra 1000mg bid IV since will keep NPO until mental status back to baseline. per neuro, give fosphentoin 500mg x 1 loading dose, then fosphentoin 100mg iv TID. seen post seizure, awake, alert and following commands, slightly groggy. Imaging: Head CT: negative, no CT evidence of acute pathology. bilateral inf. frontal encephalomlacia Left hip xray: no acute fracture EKG: nsr, possible left atrial enlargement, pulmonary disease likely Brain MRI: mod atrophy, vent. dilatation and mild periventricular ischemic changes, focal encephalomalcia in the right frontal lobe/ant/inf. chest xray 03/24/19: emphysemtous changes in lungs. Vital Signs Period Temp Pulse Resp BP Sys/Allen Pulse Ox Last 24 Hr 98.0 F-99 F 65-82 20-20 125-142/46-63 96-96 GENERAL: Awake, alert, and fully oriented, in no acute distress, appears thin and frail. HEAD: Normal with no signs of trauma. small abrasion on lower lip s/p seizure. EYES: Pupils equal, round and reactive to light, extraocular movements intact, sclera anicteric, conjunctiva clear. No lid lag. EARS, NOSE, THROAT: Ears normal, nares patent, oropharynx clear without exudates. Moist mucous membranes. NECK: Normal range of motion, supple without lymphadenopathy, JVD, or masses. LUNGS: Breath sounds equal, diminished auscultation bilaterally. HEART: Regular rate and rhythm, ABDOMEN: Soft, nontender, not distended, normoactive bowel sounds, no guarding, no rebound, no masses. No hepatomegaly or splenomegaly. MUSCULOSKELETAL: Normal range of motion at all joints. No bony deformities or tenderness. No CVA tenderness. UPPER EXTREMITIES: No peripheral edema. LOWER EXTREMITIES: No peripheral edema. NEUROLOGICAL: Normal speech. gait not observed. PSYCHIATRIC: Cooperative. Good eye contact. Appropriate mood and affect. SKIN: dry skin Laboratory Results - last 24 hr 03/28/19 03/28/19 08:02 08:02 WBC 4.8 RBC 3.34 L Hgb 12.1 Hct 33.5 L MCV 100.3 H MCH 36.2 H MCHC 36.2 H RDW 13.7 Plt Count 206 MPV 7.6 Absolute Neuts (auto) 3.2 Neutrophils % 66.2 Lymphocytes % 22.2 D Monocytes % 9.5 Eosinophils % 1.6 D Basophils % 0.5 Nucleated RBC % 0 Sodium 135 L Potassium 4.2 Chloride 103 Carbon Dioxide 26 Anion Gap 6 L BUN 8.6 Creatinine 0.4 L Est GFR (CKD-EPI)AfAm 141.45 Est GFR (CKD-EPI)NonAf 122.04 Random Glucose 85 Calcium 8.4 L Magnesium 1.7 L Total Bilirubin 0.5 AST 41 H ALT 41 Alkaline Phosphatase 100 Total Protein 6.3 L Albumin 3.4 Serum Folate 18 H Active Medications Generic Name Dose Route Start Last Admin Trade Name Freq PRN Reason Stop Dose Admin Acetaminophen 650 mg 03/24/19 19:04 Tylenol - PO Q6H PRN PAIN LEVEL 6-10 Docusate Sodium 100 mg 03/25/19 10:00 03/28/19 11:00 Colace - PO Not Given DAILY [facility] Levetiracetam 1,000 mg 03/24/19 22:00 03/28/19 10:58 Keppra - PO 1,000 mg BID [facility] Administration Nicotine 21 mg 03/26/19 18:00 03/28/19 11:00 Nicoderm Patch - TD Not Given DAILY [facility] ASSESSMENT/PLAN: Problem List - Problems (1) Seizure Assessment/Plan: rapid response today after having a seizure, given loading dose of keppra 1k, convert keppra 1000mg bid IV since will keep NPO until mental status back to baseline. per neuro, give fosphentoin 500mg x 1 loading dose, then fosphentoin 100mg iv TID. seen post seizure, awake, alert and following commands, slightly groggy. family informed of seizure. Code(s): R56.9 - UNSPECIFIED CONVULSIONS (2) Syncope and collapse Assessment/Plan: Patient with dizziness, syncope and falls on admission. nsr on tele, no acute events head ct negative for acute process, mri brain with no acute infarction, moderate atrophy, ventricular dilatation and mild periventricular chronic microvascular ischemic dx changes. focal encephalomalacia in the the frontal lobe. physical therapy for gait assessment fall precautions/seizure precautions Code(s): R55 - SYNCOPE AND COLLAPSE (3) Syncope Assessment/Plan: dizziness with falls at home. physical therapy following, home PT recommended. Code(s): R55 - SYNCOPE AND COLLAPSE (4) Falls Assessment/Plan: for physical therapy evaluation. Code(s): W19.XXXA - UNSPECIFIED FALL, INITIAL ENCOUNTER (5) Dizziness Assessment/Plan: noted to have emphysema on chest xray. may be causing dizziness/falls at home. on no home inhalers no history of emphysema or copd reported but smoking since age of 17 pulmonary consulted for further recommendations, ct scan consistent with mild copd. patient is tolerating room air Code(s): R42 - DIZZINESS AND GIDDINESS (6) Unsteady gait Assessment/Plan: for PT evaluation Code(s): R26.81 - UNSTEADINESS ON FEET (7) Tobacco abuse Assessment/Plan: smokes 1/2 pack per day, cigarettes since age of 17. not willing quit. wants to cut back. will offer nicotine patch and continue counseling on cessation. emphysema seen on chest imaging. pulm consult. Code(s): Z72.0 - TOBACCO USE (8) Moderate protein-calorie malnutrition Assessment/Plan: bmi 15.7, mild depletion of subcutanous fat and muscle mass noted. dietary consult. monitor weights. patent on dilantin which is being held currently, will defer on appetite stimulants or other meds as it can interfere with dilantin and cause further toxicity. Code(s): E44.0 - MODERATE PROTEIN-CALORIE MALNUTRITION (9) COPD (chronic obstructive pulmonary disease) Assessment/Plan: mild copd on imaging. will need outpt follow up. Code(s): J44.9 - CHRONIC OBSTRUCTIVE PULMONARY DISEASE, UNSPECIFIED (10) Prophylactic measure Assessment/Plan: fen monitor electrolytes low salt diet full code Code(s): Z29.9 - ENCOUNTER FOR PROPHYLACTIC MEASURES, UNSPECIFIED Visit type - Emergency Visit Emergency Visit: Yes ED Registration Date: 03/24/19 Care time: The patient presented to the Emergency Department on the above date and was hospitalized for further evaluation of their emergent condition. - New Patient This patient is new to me today: No - Critical Care Critical Care patient: No - Discharge Referral Referred to [facility] No
[2019-03-28] MEDS ORDERED: levETIRAcetam 500 MG/5 ML INJECTION VIAL IVPB ONE (17:08)
--- NOTE | 2019-03-28 17:10 | RAPID ---
<Silvino Estevez - Last Filed: 03/28/19 18:29> Physical Examination Vital Signs: Vital Signs Temperature 98.2 F 03/28/19 15:05 Pulse Rate 65 03/28/19 15:05 Respiratory Rate 20 03/28/19 15:05 Blood Pressure 126/46 L 03/28/19 15:05 O2 Sat by Pulse Oximetry (%) 96 03/28/19 09:00 Findings/Remarks: Rapid response was called overhead. Rapid response team arrived and pt was found to have blood periorally and shaking his Left lower extremity likely 2/2 to a seizure. Pt was no responsive to verbal stimulation and command. Vitals BP 119/57 HR69 O2 Sat 99 RA PE General: moderate distress initially then returned to baseline. AOx3 , cooperative HEENT: Dried blood periorally, blood stained mucosa Neuro: strength 5/5 b/l UE and LE, Sensation intact 5/5 UE and LE, CN 2-12 intact Lungs: CTAB CV: RRR, No MGR GI: ND, NT, BS+ Plan Prolactin and Lactate ordered Neuro checks routine Seizure precaution Pt placed on NPO Aspiration precaution and Keppra IV administered Primary team notified Labs: CBC, BMP 03/28/19 08:02 03/28/19 08:02 <[place] - Last Filed: 04/02/19 11:15> Physical Examination Vital Signs: Vital Signs Temperature 97.8 F 03/30/19 06:00 Pulse Rate 61 03/30/19 09:00 Respiratory Rate 18 03/30/19 09:00 Blood Pressure 124/37 L 03/30/19 09:00 O2 Sat by Pulse Oximetry (%) 98 03/29/19 21:00 Findings/Remarks: Seen and examined; verified morley parts of history ad PE. Discussed with resident team. Agree with note as documented. Labs: CBC, BMP 03/30/19 06:10 03/30/19 06:10
[2019-03-28] MEDS ORDERED: LORazepam 2 MG/ML SDV VIAL IVPUSH PRN (17:20)
[2019-03-28] MEDS ORDERED: FOSPHENYTOIN SODIUM 500 MG in SODIUM CHLORIDE 100 ML IVPB ONE ×2 (17:50→17:52)
[2019-03-28] MEDS ORDERED: FOSPHENYTOIN SODIUM 500 MG/10 ML IVPB ONE (18:00)
[2019-03-28] MEDS ORDERED: SODIUM CHLORIDE 1,000 ML IV SCH (21:00)
[2019-03-28] MEDS: FOSPHENYTOIN SODIUM 100 MG/2 ML VIAL IVPB SCH (22:22)
[2019-03-28] MEDS: levETIRAcetam 500 MG/5 ML INJECTION VIAL IVPB SCH (23:42)
[2019-03-29] MEDS: FOSPHENYTOIN SODIUM 100 MG/2 ML VIAL IVPB SCH ×3 (05:35→22:16)
[2019-03-29 07:42] LABS: ALBUMIN 3.1 g/dl (3.4-5.0); BILIRUBIN,TOTAL 0.6 mg/dL (0.2-1); BLOOD UREA NITROGEN 8.8 mg/dL (7-18); CALCIUM 8.3 mg/dL (8.5-10.1); CREATININE 0.5 mg/dL (0.55-1.3); POTASSIUM 4.3 mmol/L (3.5-5.1); TOT PROT 5.6 g/dl (6.4-8.2)
--- NOTE | 2019-03-29 08:09 | PN ---
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 - Current Medication List Current Medications: Active Medications Fosphenytoin Sodium (Cerebyx -) 100 mg IVPB TID [facility] Last Admin: 03/29/19 05:35 Dose: 100 mg Sodium Chloride (Normal Saline -) 1,000 mls @ 50 mls/hr IV ASDIR TREVOR Stop: 03/29/19 20:59 Last Admin: 03/28/19 22:22 Dose: 50 mls/hr Levetiracetam (Keppra Injection -) 1,000 mg IVPB BID TREVOR Last Admin: 03/28/19 23:42 Dose: 1,000 mg Lorazepam (Ativan Injection -) 1 mg IVPUSH Q6H PRN PRN Reason: seizures Last Admin: 03/28/19 17:38 Dose: 1 mg - Objective Vital Signs: Vital Signs Temperature 98.0 F 03/29/19 05:00 Pulse Rate 70 03/29/19 05:00 Respiratory Rate 20 03/29/19 05:00 Blood Pressure 110/55 L 03/29/19 05:00 O2 Sat by Pulse Oximetry (%) 95 03/28/19 21:00 Constitutional: Yes: Well Nourished, No Distress, Calm Eyes: Yes: WNL HENT: Yes: WNL, Atraumatic, Normocephalic Neck: Yes: WNL, Supple, Trachea Midline Cardiovascular: Yes: WNL, Regular Rate and Rhythm Respiratory: Yes: Diminished (at bases) Gastrointestinal: Yes: WNL, Normal Bowel Sounds ...Rectal Exam: Yes: Deferred Genitourinary: Yes: WNL Breast(s): Yes: WNL Musculoskeletal: Yes: WNL Extremities: Yes: WNL Edema: No Peripheral Pulses WNL: Yes Peripheral Pulses: Left Radial: 2+, Right Radial: 2+, Left Doralis Pedis: 2+, Right Dorsalis Pedis: 2+, Left Femoral: 2+, Right Femoral: 2+ Integumentary: Yes: WNL Neurological: Yes: Alert, Oriented, Unsteady Gait ...Motor Strength: WNL Labs: CBC, BMP 03/29/19 06:15 INR, PTT INR 1.08 (0.83-1.09) 03/24/19 13:15 - ....Imaging Chest X-ray: Report Reviewed (CXR 03/24/19: emphysemtous changes in lungs.) Cat Scan: Report Reviewed (Head CT: negative, no CT evidence of acute pathology. bilateral inf. frontal encephalomlacia Left hip xray: no acute fracture EKG: nsr, possible left atrial enlargement, pulmonary disease likely) MRI: Report Reviewed (Brain MRI: mod atrophy, vent. dilatation and mild periventricular ischemic changes, focal encephalomalcia in the right frontal lobe/ant/inf.) Other: Report Reviewed ( c) Problem List - Problems (1) Apraxia Code(s): R48.2 - APRAXIA (2) Aphasia Assessment/Plan: seen by [facility] for dysphagia regular diet with thin liquids Code(s): R47.01 - APHASIA (3) Prophylactic measure Assessment/Plan: FEN regualr diet no additional fluids needed nutritional supplements DVT early ambulation] PT Dispo mainatin as inoatient full code discharge pklanning to possibe SNF Code(s): Z29.9 - ENCOUNTER FOR PROPHYLACTIC MEASURES, UNSPECIFIED (4) Seizure Assessment/Plan: appreciate neurology consultation Mri No acute infarct is identified keppr level pending phyotoin level 2.5 c/W keppra and fosphynetoin no sz activity noted fall precautions Code(s): R56.9 - UNSPECIFIED CONVULSIONS (5) Dizziness Assessment/Plan: start low dose meclizine for vertigo?-will reasses tomorrow effectiveness Code(s): R42 - DIZZINESS AND GIDDINESS (6) Tobacco abuse Assessment/Plan: smoking cessation counseling Code(s): Z72.0 - TOBACCO USE (7) Unsteady gait Assessment/Plan: dizziness with falls at home r/t high dilantin levels? c/w physical therapy home PT recommended vs SNF placement Code(s): R26.81 - UNSTEADINESS ON FEET (8) Moderate protein-calorie malnutrition Assessment/Plan: bmi 15.7, mild depletion of subcutaneous fat and muscle mass noted. dietary following daily weights. will defer on appetite stimulants or other meds as it can interfere with dilantin and cause further toxicity pt refusing ensure will re-offer, start prosource Code(s): E44.0 - MODERATE PROTEIN-CALORIE MALNUTRITION Visit type - Emergency Visit Emergency Visit: Yes ED Registration Date: 03/24/19 Care time: The patient presented to the Emergency Department on the above date and was hospitalized for further evaluation of their emergent condition. - New Patient This patient is new to me today: Yes Date on this admission: 03/29/19 - Critical Care Critical Care patient: No - Discharge Referral Referred to [facility] Med P.C.: No
[2019-03-29 09:00] LABS: BASO % 0.3 % (0-2.0); EOS % 2.4 % (0-4.5); HEMATOCRIT 32.3 % (35.4-49); HEMOGLOBIN 11.1 GM/dL (11.7-16.9); LYMPH % 19.5 % (8-40); MCH 34.6 pg (25.7-33.7); MCHC 34.3 g/dl (32.0-35.9); MEAN CELL VOLUME 100.7 fl (80-96); MEAN PLT VOLUME 7.9 fl (7.5-11.1); MONO % 10.4 % (3.8-10.2); NEUT % 67.4 % (42.8-82.8); PLATELET COUNT 207 K/MM3 (134-434); RBC 3.21 M/mm3 (4.00-5.60); RDW 13.6 % (11.9-15.9)
[2019-03-29 10:01] LABS: MAGNESIUM 1.8 mg/dL (1.8-2.4)
[2019-03-29] MEDS: levETIRAcetam 500 MG/5 ML INJECTION VIAL IVPB SCH ×2 (10:21→22:15)
--- NOTE | 2019-03-29 10:40 | CONSULT ---
Admitting History and Physical - Primary Care Physician PCP: Mars Weeks - Admission History of Present Illness: Patient is a 68 year old male with a significant past medical history of seizure disorder, traumatic SAH in 2014 with mild residual apraxia and aphasia who presents to the ED with with dizziness, unstable gait, and fall. 03/28-Rapid response team arrived and pt was found to have blood periorally and shaking his Left lower extremity likely 2/2 to a seizure. Pt was not responsive to verbal stimulation and command. Today, oob, verbal, appropriate, o x 3, good historian. History Source: Patient, Medical Record Limitations to Obtaining History: No Limitations (baseline mild aphasia/apraxia) - Smoking History Smoking history: Current every day smoker Have you smoked in the past 12 months: No Aproximately how many cigarettes per day: 10 - Alcohol/Substance Use Hx Alcohol Use: No History - Admission Reason For Visit: DIZZINESS INSTAEDY GAIT - Diagnostics X-ray: Report Reviewed CT Scan: Report Reviewed MRI: Report Reviewed - General Mental Status: Alert and Oriented, Awake and Alert, Able to Follow Commands Attention: Intact Ability to Follow Directions: Good Head/Neck Control: WFL - Hearing Hearing: Normal Hearing Aide: No With Patient: No Speech Evaluation - Communication Primary Language: MONGOLIAN Communication: Yes: Aphasia (mild, errors in multisyllabic words and function word omission.) Oral Expression Ability: Yes: Mild Impairment - Speech Production Apraxia: Yes Able to Make Needs Known: Yes: Mildly Impaired Intelligibility: Yes: WNL - Speech Characteristics Voice Loudness: Normal Voice Pitch: Yes: Normal Voice Phonatory-based Quality: Yes: Normal Speech Clarity: < 100% Nasal Resonance: Normal Articulation: Yes: Precise - Language/Auditory Comprehension Follows: Yes: 2 Stage Simple Commands Observation: Able to respond to yes/no queries: Yes, Yes/No Confusion: No, Comprehends Conversational Speech: Yes - Language/Verbal Expression Aphasia: Yes: Apraxia, Grammatic Errors Functional Communication Status: Yes: Mildly Impaired - Swallow Evaluation/Bedside Assessment Current Nutritional Intake: NPO Oral Secretions: Yes: WFL Dentition: Yes: Adequate Facial Symmetry at Rest: Symmetrical Facial Symmetry on Retraction: Symmetrical Facial Movement: Controlled Sensation: Normal Against Resistance Opening: Normal Against Resistance Closing: Normal Pucker Lips: Normal Smile: Normal Lingual Movement: Normal, Symmetric Lingual Speed of Movement: Normal Lingual Movement Strgth Against Opposition: Normal Lingual Movement Characteristics: Normal Velopharyngeal Movement: Normal Laryngeal Elevation: WFL Laryngeal Movement: Able to Palpate Rate of Intake: WFL Bolus Size: WFL Labial Seal: WFL Chewing: WFL Oral Prep Time: WFL A-P Transit: WFL Pocketing: None Timing of Swallow: WFL Coughing/Throat Clear: No ((-) 3 oz water test) Change in Voice: No Recommendations - Speech Evaluation, Impression/Plan Impression: Baseline mild Aphasia/Apraxia with function word ommision and multisyllabic word production. - Dysphagia Impressions/Plan Swallowing Skills: WFL Dysphagia Impressions: No Impairment *Silent aspiration: cannot be R/O at bedside - Recommendations Diet Consistency: Regular Medication Administration: Whole with water Liquids: Thin Liquids
--- NOTE | 2019-03-29 10:44 | PN ---
Progress Note, Physician History of Present Illness: pulmonary awake,alert,oob-chair,-sob,dizziness improving - Current Medication List Current Medications: Active Medications Fosphenytoin Sodium (Cerebyx -) 100 mg IVPB TID [facility] Last Admin: 03/29/19 05:35 Dose: 100 mg Sodium Chloride (Normal Saline -) 1,000 mls @ 50 mls/hr IV ASDIR TREVOR Stop: 03/29/19 20:59 Last Admin: 03/28/19 22:22 Dose: 50 mls/hr Levetiracetam (Keppra Injection -) 1,000 mg IVPB BID [facility] Last Admin: 03/29/19 10:21 Dose: 1,000 mg Lorazepam (Ativan Injection -) 1 mg IVPUSH Q6H PRN PRN Reason: seizures Last Admin: 03/28/19 17:38 Dose: 1 mg - Objective Vital Signs: Vital Signs Temperature 97.9 F 03/29/19 09:00 Pulse Rate 66 03/29/19 09:00 Respiratory Rate 20 03/29/19 09:00 Blood Pressure 110/51 L 03/29/19 09:00 O2 Sat by Pulse Oximetry (%) 98 03/29/19 09:00 Constitutional: Yes: Calm, Thin Eyes: Yes: WNL HENT: Yes: WNL Neck: Yes: WNL Cardiovascular: Yes: Regular Rate and Rhythm, S1, S2 Respiratory: Yes: Diminished Gastrointestinal: Yes: Normal Bowel Sounds, Soft Extremities: Yes: WNL Edema: No Labs: CBC, BMP 03/29/19 06:15 03/29/19 06:15 INR, PTT INR 1.08 (0.83-1.09) 03/24/19 13:15 - ....Imaging Cat Scan: Report Reviewed, Image Reviewed Problem List - Problems (1) Dilantin toxicity Code(s): T42.0X1A - POISONING BY HYDANTOIN DERIVATIVES, ACCIDENTAL, INIT (2) Dizziness Code(s): R42 - DIZZINESS AND GIDDINESS (3) Seizure Code(s): R56.9 - UNSPECIFIED CONVULSIONS (4) Tobacco abuse Code(s): Z72.0 - TOBACCO USE (5) Unsteady gait Code(s): R26.81 - UNSTEADINESS ON FEET Assessment/Plan IMP COPD STABLE NOT IN ACUTE EXACERBATION S/P FALL UNSTEADY GAIT DILANTIN TOXICITY IMPROVING H/O TRAUMATIC SUBARACHNOID SEIZURE DISORDER SMOKER PLAN KEPPRA INHALED BRONCHODILATORS NEEDED YEARLY LOW DOSE CHEST CT FOR LUNG CANCER SCREENING SMOKING CESSATION COUNSELED OUTPATIENT PFTS DR QUINN Problem List - Problems (1) Dilantin toxicity Code(s): T42.0X1A - POISONING BY HYDANTOIN DERIVATIVES, ACCIDENTAL, INIT (2) Dizziness Code(s): R42 - DIZZINESS AND GIDDINESS (3) Seizure Code(s): R56.9 - UNSPECIFIED CONVULSIONS (4) Tobacco abuse Code(s): Z72.0 - TOBACCO USE (5) Unsteady gait Code(s): R26.81 - UNSTEADINESS ON FEET
[2019-03-29] MEDS ORDERED: PT OWN MED DRAWER 7, Y5N ONE (14:34)
--- NOTE | 2019-03-29 16:34 | PN ---
Progress Note (short form) - Note Progress Note: 68 year old male, with a significant PMH of seizure disorder (compliant with medications) and traumatic subarachnoid hemorrhage (2014, with residual mild apraxia and aphasia), who presents to the ED for evaluation of dizziness and unsteady gait for 2 days. Patient reports falling onto his left hip 2 days ago secondary to dizziness and feeling unsteady, and endorses some residual pain. He admits to falling again this morning because of the continual room-spinning dizziness and unsteadiness, and reports hitting his head but denies LOC. Brother at bedside notes his speech is at baseline, but he cannot walk ( ambulates without assertive devices at baseline). receives his AED form his PMD , last SZ Jul 2018; dilantin > 36. FU : still unsteady does feel left hip unsteady, XRAy -no acute pathology seizure event noted, restarted dilantin MRI BRAIN reviewed RADIOLOGY : MRI BRAIN : IMPRESSION: No acute infarct is identified. Moderate atrophy, ventricular dilatation and mild periventricular chronic microvascular ischemic disease changes are present. Focal encephalomalacia in the right frontal lobe, anteriorly/inferiorly again seen. - Alcohol/Substance Use Hx Alcohol Use: No - Smoking History Smoking history: Current every day smoker Have you smoked in the past 12 months: No Aproximately how many cigarettes per day: 10 Home Medications - Allergies Allergies/Adverse Reactions: Allergies Allergy/AdvReac Type Severity Reaction Status Date / Time No Known Allergies Allergy Verified 03/24/19 11:42 Physical Exam-Neuro Vital Signs: Vital Signs Temperature 98.4 F 03/29/19 14:00 Pulse Rate 65 03/29/19 14:00 Respiratory Rate 20 03/29/19 14:00 Blood Pressure 119/44 L 03/29/19 14:00 O2 Sat by Pulse Oximetry (%) 98 03/29/19 09:00 Labs: CBCD CBCD WBC 6.1 K/mm3 (4.0-10.0) 03/26/19 10:43 RBC 3.80 M/mm3 (4.00-5.60) L 03/26/19 10:43 Hgb 13.2 GM/dL (11.7-16.9) 03/26/19 10:43 Hct 38.1 % (35.4-49) 03/26/19 10:43 MCV 100.4 fl (80-96) H 03/26/19 10:43 MCHC 34.5 g/dl (32.0-35.9) 03/26/19 10:43 RDW 13.6 % (11.9-15.9) 03/26/19 10:43 Plt Count 175 K/MM3 (134-434) 03/26/19 10:43 MPV 7.8 fl (7.5-11.1) 03/26/19 10:43 CMP Sodium 134 mmol/L (136-145) L 03/26/19 10:43 Potassium 3.9 mmol/L (3.5-5.1) 03/26/19 10:43 Chloride 100 mmol/L (98-107) 03/26/19 10:43 Carbon Dioxide 28 mmol/L (21-32) 03/26/19 10:43 Anion Gap 5 MMOL/L (8-16) L 03/26/19 10:43 BUN 9.2 mg/dL (7-18) 03/26/19 10:43 Creatinine 0.6 mg/dL (0.55-1.3) 03/26/19 10:43 Calcium 8.2 mg/dL (8.5-10.1) L 03/26/19 10:43 Total Bilirubin 0.6 mg/dL (0.2-1) 03/26/19 10:43 AST 34 U/L (15-37) 03/26/19 10:43 ALT 32 U/L (13-61) 03/26/19 10:43 Alkaline Phosphatase 103 U/L (45-117) 03/26/19 10:43 Total Protein 6.4 g/dl (6.4-8.2) 03/26/19 10:43 Albumin 3.6 g/dl (3.4-5.0) 03/26/19 10:43 - Neuro Exam Level Of Consciousness: Yes: Alert (awake, EOMI, no facial, no ataxia, very wide based gait, unsteady ) Imaging - Results Cat Scan: Report Reviewed, Image Reviewed Assessment/Plan 68 year old male, with a significant PMH of seizure disorder (compliant with medications) and traumatic subarachnoid hemorrhage (2014, with residual mild apraxia and aphasia), who presents to the ED for evaluation of dizziness and unsteady gait for 2 days. Patient reports falling onto his left hip 2 days ago secondary to dizziness and feeling unsteady, and endorses some residual pain. He admits to falling again this morning because of the continual room-spinning dizziness and unsteadiness, and reports hitting his head but denies LOC. Brother at bedside notes his speech is at baseline, but he cannot walk ( ambulates without assertive devices at baseline). receives his AED form his PMD , last SZ Jul 2018; dilantin > 36. + smoking, no ETOH. CT HD IMPRESSION: No CT evidence of acute intracranial pathology. 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 dilantin toxicity vs new ischemic event vs hydrocephalus , inc tone in legs may be from prior stroke vs cervical mediated , though he reports this is a new phenomena MRI BRAIN -no acute changes , R frontal encephalomalcia , no obstructive hydrocephalus dilantin restarted --100TID now , check LEVEL in one week cont KEppra 1000BID ? left hip pathology a factor -- ORTHO input, use waker for now rehab planning DR GRANADOS
[2019-03-29] MEDS: MECLIZINE HCL 12.5 MG TABLET PO SCH (18:15)
[2019-03-30] MEDS: MECLIZINE HCL 12.5 MG TABLET PO SCH ×3 (00:42→13:40)
[2019-03-30] MEDS: FOSPHENYTOIN SODIUM 100 MG/2 ML VIAL IVPB SCH (05:54)
[2019-03-30 06:33] VITALS: TEMP 97.8
[2019-03-30 07:07] LABS: BASO % 0.5 % (0-2.0); EOS % 2.8 % (0-4.5); HEMATOCRIT 31.7 % (35.4-49); LYMPH % 27.2 % (8-40); MCH 35.3 pg (25.7-33.7); MCHC 34.6 g/dl (32.0-35.9); MEAN CELL VOLUME 101.9 fl (80-96); MEAN PLT VOLUME 7.4 fl (7.5-11.1); MONO % 11.2 % (3.8-10.2); NEUT % 58.3 % (42.8-82.8); PLATELET COUNT 226 K/MM3 (134-434); RBC 3.12 M/mm3 (4.00-5.60); RDW 13.7 % (11.9-15.9); WHITE BLOOD COUNT 4.8 K/mm3 (4.0-10.0)
[2019-03-30 07:14] LABS: ALBUMIN 3.1 g/dl (3.4-5.0); BILIRUBIN,TOTAL 0.5 mg/dL (0.2-1); BLOOD UREA NITROGEN 10.4 mg/dL (7-18); CALCIUM 8.3 mg/dL (8.5-10.1); CREATININE 0.5 mg/dL (0.55-1.3); POTASSIUM 4.2 mmol/L (3.5-5.1); TOT PROT 5.8 g/dl (6.4-8.2)
--- NOTE | 2019-03-30 07:53 | PN ---
Progress Note, Physician - Current Medication List Current Medications: Active Medications Amino Acids (Prosource No Carb Liquid Pkt) 30 ml PO BID@0800,1730 [facility] Fosphenytoin Sodium (Cerebyx -) 100 mg IVPB TID [facility] Last Admin: 03/30/19 05:54 Dose: 100 mg Levetiracetam (Keppra Injection -) 1,000 mg IVPB BID [facility] Last Admin: 03/29/19 22:15 Dose: 1,000 mg Lorazepam (Ativan Injection -) 1 mg IVPUSH Q6H PRN PRN Reason: seizures Last Admin: 03/28/19 17:38 Dose: 1 mg Meclizine HCl (Antivert -) 12.5 mg PO Q6HPO [facility] Last Admin: 03/30/19 05:54 Dose: 12.5 mg - Objective Vital Signs: Vital Signs Temperature 97.8 F 03/30/19 06:00 Pulse Rate 58 L 03/30/19 06:00 Respiratory Rate 20 03/30/19 06:00 Blood Pressure 119/49 L 03/30/19 06:00 O2 Sat by Pulse Oximetry (%) 98 03/29/19 21:00 Labs: CBC, BMP 03/30/19 06:10 INR, PTT INR 1.08 (0.83-1.09) 03/24/19 13:15 Problem List - Problems (1) Apraxia Code(s): R48.2 - APRAXIA (2) Aphasia Code(s): R47.01 - APHASIA (3) Prophylactic measure Code(s): Z29.9 - ENCOUNTER FOR PROPHYLACTIC MEASURES, UNSPECIFIED (4) Seizure Code(s): R56.9 - UNSPECIFIED CONVULSIONS (5) Dizziness Code(s): R42 - DIZZINESS AND GIDDINESS (6) Tobacco abuse Code(s): Z72.0 - TOBACCO USE (7) Unsteady gait Code(s): R26.81 - UNSTEADINESS ON FEET (8) Moderate protein-calorie malnutrition Code(s): E44.0 - MODERATE PROTEIN-CALORIE MALNUTRITION
[2019-03-30] MEDS ORDERED: AMINO ACIDS/PROTEIN HYDROLYS 30 ML LIQUID.PKT PO SCH (08:00)
[2019-03-30 09:00] VITALS: BP 124/37; PULSE 61
[2019-03-30] MEDS ORDERED: levETIRAcetam 500 MG TABLET (FP) PO SCH (10:00)
[2019-03-30] MEDS ORDERED: PT OWN MED DRAWER 7, Y5N ONE (10:19)
[2019-03-30] MEDS: PHENYTOIN NA EXTENDED 100 MG CAPSULE (FP) PO SCH ×2 (10:46→13:39)
--- NOTE | 2019-03-30 11:15 | PN ---
Progress Note, FOOD SCIENTIST - Note Progress Note: Selected Entries 03/29/19 03/29/19 03/29/19 01:00 05:00 09:00 Supper Temperature 97.7 F 98.0 F 97.9 F 03/29/19 03/29/19 03/29/19 14:00 17:00 21:14 Supper 50% Temperature 98.4 F 98.0 F 03/29/19 03/30/19 03/30/19 22:00 01:41 06:00 Supper Temperature 98.3 F 98.2 F 97.8 F Laboratory Tests 03/30/19 06:10 WBC 4.8 On Reg diet/thin liquids.Tolerating diet well. He reports completing his meals without difficulty.
--- NOTE | 2019-03-30 11:35 | PN ---
Progress Note (short form) - Note Progress Note: 68 year old male, with a significant PMH of seizure disorder (compliant with medications) and traumatic subarachnoid hemorrhage (2014, with residual mild apraxia and aphasia), who presents to the ED for evaluation of dizziness and unsteady gait for 2 days. Patient reports falling onto his left hip 2 days ago secondary to dizziness and feeling unsteady, and endorses some residual pain. He admits to falling again this morning because of the continual room-spinning dizziness and unsteadiness, and reports hitting his head but denies LOC. Brother at bedside notes his speech is at baseline, but he cannot walk ( ambulates without assertive devices at baseline). receives his AED form his PMD , last SZ Jul 2018; dilantin > 36. FU : doing better seizure event noted, restarted dilantin MRI BRAIN reviewed RADIOLOGY : MRI BRAIN : IMPRESSION: No acute infarct is identified. Moderate atrophy, ventricular dilatation and mild periventricular chronic microvascular ischemic disease changes are present. Focal encephalomalacia in the right frontal lobe, anteriorly/inferiorly again seen. - Alcohol/Substance Use Hx Alcohol Use: No - Smoking History Smoking history: Current every day smoker Have you smoked in the past 12 months: No Aproximately how many cigarettes per day: 10 Home Medications - Allergies Allergies/Adverse Reactions: Allergies Allergy/AdvReac Type Severity Reaction Status Date / Time No Known Allergies Allergy Verified 03/24/19 11:42 Physical Exam-Neuro Vital Signs: Vital Signs Temperature 97.8 F 03/30/19 06:00 Pulse Rate 61 03/30/19 09:00 Respiratory Rate 18 03/30/19 09:00 Blood Pressure 124/37 L 03/30/19 09:00 O2 Sat by Pulse Oximetry (%) 98 03/29/19 21:00 Labs: CBCD CBCD WBC 6.1 K/mm3 (4.0-10.0) 03/26/19 10:43 RBC 3.80 M/mm3 (4.00-5.60) L 03/26/19 10:43 Hgb 13.2 GM/dL (11.7-16.9) 03/26/19 10:43 Hct 38.1 % (35.4-49) 03/26/19 10:43 MCV 100.4 fl (80-96) H 03/26/19 10:43 MCHC 34.5 g/dl (32.0-35.9) 03/26/19 10:43 RDW 13.6 % (11.9-15.9) 03/26/19 10:43 Plt Count 175 K/MM3 (134-434) 03/26/19 10:43 MPV 7.8 fl (7.5-11.1) 03/26/19 10:43 CMP Sodium 134 mmol/L (136-145) L 03/26/19 10:43 Potassium 3.9 mmol/L (3.5-5.1) 03/26/19 10:43 Chloride 100 mmol/L (98-107) 03/26/19 10:43 Carbon Dioxide 28 mmol/L (21-32) 03/26/19 10:43 Anion Gap 5 MMOL/L (8-16) L 03/26/19 10:43 BUN 9.2 mg/dL (7-18) 03/26/19 10:43 Creatinine 0.6 mg/dL (0.55-1.3) 03/26/19 10:43 Calcium 8.2 mg/dL (8.5-10.1) L 03/26/19 10:43 Total Bilirubin 0.6 mg/dL (0.2-1) 03/26/19 10:43 AST 34 U/L (15-37) 03/26/19 10:43 ALT 32 U/L (13-61) 03/26/19 10:43 Alkaline Phosphatase 103 U/L (45-117) 03/26/19 10:43 Total Protein 6.4 g/dl (6.4-8.2) 03/26/19 10:43 Albumin 3.6 g/dl (3.4-5.0) 03/26/19 10:43 - Neuro Exam Level Of Consciousness: Yes: Alert (awake, EOMI, no facial, no ataxia, very wide based gait, unsteady ) Imaging - Results Cat Scan: Report Reviewed, Image Reviewed Assessment/Plan 68 year old male, with a significant PMH of seizure disorder (compliant with medications) and traumatic subarachnoid hemorrhage (2014, with residual mild apraxia and aphasia), who presents to the ED for evaluation of dizziness and unsteady gait for 2 days. Patient reports falling onto his left hip 2 days ago secondary to dizziness and feeling unsteady, and endorses some residual pain. He admits to falling again this morning because of the continual room-spinning dizziness and unsteadiness, and reports hitting his head but denies LOC. Brother at bedside notes his speech is at baseline, but he cannot walk ( ambulates without assertive devices at baseline). receives his AED form his PMD , last SZ Jul 2018; dilantin > 36. + smoking, no ETOH. CT HD IMPRESSION: No CT evidence of acute intracranial pathology. 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 dilantin toxicity vs new ischemic event vs hydrocephalus , inc tone in legs may be from prior stroke vs cervical mediated , though he reports this is a new phenomena MRI BRAIN -no acute changes , R frontal encephalomalcia , no obstructive hydrocephalus dilantin restarted --100TID now , check LEVEL in one week OUTPT cont KEppra 1000BID would optinmize gait in rehab--neuro cleared DR GRANADOS
--- NOTE | 2019-03-30 13:25 | DS ---
Physical Exam: SUBJECTIVE: Patient seen and examined OBJECTIVE: Vital Signs Period Temp Pulse Resp BP Sys/Allen Pulse Ox Last 24 Hr 97.8 F-98.4 F 58-65 18-20 117-125/37-54 98 PHYSICAL EXAM Constitutional: Yes: Well Nourished, No Distress, Calm Eyes: Yes: WNL HENT: Yes: WNL, Atraumatic, Normocephalic Neck: Yes: WNL, Supple, Trachea Midline Cardiovascular: Yes: WNL, Regular Rate and Rhythm Respiratory: Yes: Diminished (at bases) Gastrointestinal: Yes: WNL, Normal Bowel Sounds ...Rectal Exam: Yes: Deferred Genitourinary: Yes: WNL Breast(s): Yes: WNL Musculoskeletal: Yes: WNL Extremities: Yes: WNL Edema: No Peripheral Pulses WNL: Yes Peripheral Pulses: Left Radial: 2+, Right Radial: 2+, Left Doralis Pedis: 2+, Right Dorsalis Pedis: 2+, Left Femoral: 2+, Right Femoral: 2+ Integumentary: Yes: WNL Neurological: Yes: Alert, Oriented, Unsteady Gait ...Motor Strength: WNL LABS Laboratory Results - last 24 hr 03/28/19 03/30/19 03/30/19 18:30 06:10 06:10 WBC 4.8 RBC 3.12 L Hgb 11.0 L Hct 31.7 L MCV 101.9 H MCH 35.3 H MCHC 34.6 RDW 13.7 Plt Count 226 MPV 7.4 L Absolute Neuts (auto) 2.8 Neutrophils % 58.3 Lymphocytes % 27.2 D Monocytes % 11.2 H Eosinophils % 2.8 Basophils % 0.5 Nucleated RBC % 0 Sodium 136 Potassium 4.2 Chloride 103 Carbon Dioxide 28 Anion Gap 5 L BUN 10.4 Creatinine 0.5 L Est GFR (CKD-EPI)AfAm 129.05 Est GFR (CKD-EPI)NonAf 111.35 Random Glucose 78 Calcium 8.3 L Magnesium 2.0 Total Bilirubin 0.5 AST 38 H ALT 51 Alkaline Phosphatase 99 Total Protein 5.8 L Albumin 3.1 L Prolactin 29.5 H HOSPITAL COURSE: Date of Admission:03/24/19 Date of Discharge: 03/30/19 Problem List - Problems (1) Apraxia Code(s): R48.2 - APRAXIA (2) Aphasia Assessment/Plan: seen by CAN REFORMING MACHINE OPERATOR for dysphagia regular diet with thin liquids Code(s): R47.01 - APHASIA (3) Prophylactic measure Assessment/Plan: FEN regular diet nutritional supplements DVT PT Dispo discharge to home Code(s): Z29.9 - ENCOUNTER FOR PROPHYLACTIC MEASURES, UNSPECIFIED (4) Seizure Assessment/Plan: c/w keppra and dilantin fall precautions Code(s): R56.9 - UNSPECIFIED CONVULSIONS (5) Dizziness Assessment/Plan: c/w meclizine Code(s): R42 - DIZZINESS AND GIDDINESS (6) Tobacco abuse Assessment/Plan: smoking cessation counseling Code(s): Z72.0 - TOBACCO USE (7) Unsteady gait Assessment/Plan: dizziness with falls at home r/t high dilantin levels? c/w physical therapy Code(s): R26.81 - UNSTEADINESS ON FEET (8) Moderate protein-calorie malnutrition Assessment/Plan: bmi 15.7, mild depletion of subcutaneous fat and muscle mass noted. daily weights. will defer on appetite stimulants or other meds as it can interfere with dilantin and cause further toxicity pt refusing ensure will re-offer, start prosource Code(s): E44.0 - MODERATE PROTEIN-CALORIE MALNUTRITION Minutes to complete discharge: 45 Discharge Summary Problems reviewed: Yes Reason For Visit: DIZZINESS INSTAEDY GAIT Current Active Problems Aphasia (Acute) Apraxia (Acute) COPD (chronic obstructive pulmonary disease) (Acute) Dilantin toxicity (Acute) Dizziness (Acute) Falls (Acute) Moderate protein-calorie malnutrition (Acute) Prophylactic measure (Acute) Seizure (Acute) Syncope (Acute) Syncope and collapse (Acute) Tobacco abuse (Acute) Unsteady gait (Acute) Hospital Course: Chest X-ray: Report Reviewed (CXR 03/24/19: emphysemtous changes in lungs.) Cat Scan: Report Reviewed (Head CT: negative, no CT evidence of acute pathology. bilateral inf. frontal encephalomlacia Left hip xray: no acute fracture EKG: nsr, possible left atrial enlargement, pulmonary disease likely) MRI: Report Reviewed (Brain MRI: mod atrophy, vent. dilatation and mild periventricular ischemic changes, focal encephalomalcia in the right frontal lobe/ant/inf.) Other: Report Reviewed ( c) HOSPITAL COURSE: Date of Admission:03/24/19 Date of Discharge: 03/30/19 Problem List - Problems (1) Apraxia Code(s): R48.2 - APRAXIA (2) Aphasia Assessment/Plan: seen by CAN REFORMING MACHINE OPERATOR for dysphagia regular diet with thin liquids Code(s): R47.01 - APHASIA (3) Prophylactic measure Assessment/Plan: FEN regular diet nutritional supplements DVT PT Dispo discharge to home Code(s): Z29.9 - ENCOUNTER FOR PROPHYLACTIC MEASURES, UNSPECIFIED (4) Seizure Assessment/Plan: c/w keppra and dilantin fall precautions Code(s): R56.9 - UNSPECIFIED CONVULSIONS (5) Dizziness Assessment/Plan: c/w meclizine Code(s): R42 - DIZZINESS AND GIDDINESS (6) Tobacco abuse Assessment/Plan: smoking cessation counseling Code(s): Z72.0 - TOBACCO USE (7) Unsteady gait Assessment/Plan: dizziness with falls at home r/t high dilantin levels? c/w physical therapy Code(s): R26.81 - UNSTEADINESS ON FEET (8) Moderate protein-calorie malnutrition Assessment/Plan: bmi 15.7, mild depletion of subcutaneous fat and muscle mass noted. daily weights. will defer on appetite stimulants or other meds as it can interfere with dilantin and cause further toxicity pt refusing ensure will re-offer, start prosource Code(s): E44.0 - MODERATE PROTEIN-CALORIE MALNUTRITION Condition: Guarded - Instructions Diet, Activity, Other Instructions: You were admitted for dizziness and an unsteady gait. Your dilantin level was found to be in a toxic range. Your doses were adjusted. At home take : Dilantin 100 mg 3 times a day Keppra 1000mg 2 times a day You were started an a medication called meclizine (Antivert) for the dizziness. You can take that 3 times a day if the dizziness persists. Resume all your other medications with the new doses of dilantin. You can follow with Dr Garland in 2 weeks or make an appointment with Dr Rachel with neurology If you have increasing pain call Dr William office or return back to ED Referrals: Ganesh Rachel DO [Staff Physician] - Linden Garland MD [Primary Care Provider] - Disposition: HOME - Home Medications Comprehensive Discharge Medication List: Ambulatory Orders Folic Acid 1 mg PO DAILY 03/28/19 levETIRAcetam [Keppra -] 1,000 mg PO BID 03/28/19 Meclizine HCl [Antivert -] 12.5 mg PO Q6HPO #30 tablet 03/30/19 Phenytoin Na Extended [Dilantin -] 100 mg PO TID #90 capsule 03/30/19 levETIRAcetam [Keppra -] 1,000 mg PO BID #60 tablet 03/30/19 Problem List - Problems (1) Apraxia Code(s): R48.2 - APRAXIA (2) Aphasia Code(s): R47.01 - APHASIA (3) Prophylactic measure Code(s): Z29.9 - ENCOUNTER FOR PROPHYLACTIC MEASURES, UNSPECIFIED (4) Seizure Code(s): R56.9 - UNSPECIFIED CONVULSIONS (5) Dizziness Code(s): R42 - DIZZINESS AND GIDDINESS (6) Tobacco abuse Code(s): Z72.0 - TOBACCO USE (7) Unsteady gait Code(s): R26.81 - UNSTEADINESS ON FEET (8) Moderate protein-calorie malnutrition Code(s): E44.0 - MODERATE PROTEIN-CALORIE MALNUTRITION This patient is new to me today: No Emergency Visit: Yes ED Registration Date: 03/24/19 Care time: The patient presented to the Emergency Department on the above date and was hospitalized for further evaluation of their emergent condition. Critical Care patient: No - Discharge Referral Referred to [facility] Med P.C.: No
== END 2019-03-30 14:24 | disposition home health service (06) | DRG 918 ==
LOC: JER 11:29 → JERBED 16:50 → J4W 03-25 18:31
PROVIDERS: ADMIT Internal Medicine; ATTEND Nurse Practitioner Acute Care
DX: T42.0X1A Poisoning by hydantoin derivatives, accidental (unintentional), initial encounter (principal); E44.0 Moderate protein-calorie malnutrition; Z68.1 Body mass index [BMI] 19.9 or less, adult; R64 Cachexia; R47.01 Aphasia; R55 Syncope and collapse; G40.909 Epilepsy, unspecified, not intractable, without status epilepticus; R13.10 Dysphagia, unspecified; G93.89 Other specified disorders of brain; J44.9 Chronic obstructive pulmonary disease, unspecified; R48.2 Apraxia; R26.81 Unsteadiness on feet; W19.XXXA Unspecified fall, initial encounter; Y92.098 Other place in other non-institutional residence as the place of occurrence of the external cause
CPT/HCPCS: 36415; 70450-TC; 70551-TC; 71045-TC-FY; 71250-TC; 72125-TC; 73523-TC-FY; 80053; 80061; 80177; 80185; 81003; 82550; 82553; 82746; 83036; 83605; 83721; 83735; 84146; 84443; 84484; 85025; 85610; 85730; 86850; 86900; 86901; 87086; 93005; 93010; 97116-GP; 97161-GP; 99285-25; J7030